=== PATIENT | male | born 1955 | race Caucasian/White ===

== ENCOUNTER 2020-08-04 16:55 | Inpatient (IN) ==
[2020-08-04] MEDS ORDERED: SODIUM CHLORIDE 0.9% 1000ML 1,000 ML IV ONE (17:08)
[2020-08-04] MEDS ORDERED: ONDANSETRON INJ 2 MG/ML 2 ML VIAL IV STA (17:09)
[2020-08-04] MEDS ORDERED: MoRPHine SULFATE 2 MG/ML CARP IV STA (17:09)
[2020-08-04] MEDS ORDERED: OPTIRAY 320 125ml IV ONE (17:14)
--- NOTE | 2020-08-04 17:19 | Emergency Department Note ---
History of Present Illness General Chief complaint: Illness Stated complaint: ILLNESS Time Seen by Provider: 08/04/20 17:00 Source: patient and family (Daughter who is at the bedside) Mode of arrival: ambulatory Limitations: no limitations History of Present Illness Maximum Pain Intensity: 10 This patient comes in after having abdominal pain this been going on for couple weeks. It got acutely worse today around 3:00. It does radiate to his back. Now he feels short of breath as well. He has been taking aspirin for pain over the last couple weeks. His daughter gives most of the history and says that he does not go to the doctor very often and has not been to a doctor in years. He is on no regular medication or blood thinners. No dysuria hematuria. No fever chills or exposure to COVID. No cough. Home Medications Home Medications Medication Instructions Recorded Confirmed Type aspirin 975 mg PO DAILY 08/04/20 08/04/20 History meloxicam 15 mg PO DAILY 08/04/20 08/04/20 History Allergies Allergy/AdvReac Type Severity Reaction Status Date / Time No Known Allergies Allergy Unverified 08/04/20 18:59 Past Med/Surg History Medical History (Updated 08/04/20 @ 20:03 by Danial Jensen MD) Abdominal pain Acute duodenitis Duodenal ulcer perforation Obesity Snoring SOB (shortness of breath) Surgical History (Updated 08/04/20 @ 19:59 by Leon Marin MD) Hx of tonsillectomy Social History Smoking Status: Unknown if ever smoked Do You Dip or Chew Tobacco: No; Hx Alcohol Use: No Hx Substance Use: No Feels Safe at Home: Yes Review of Systems A total of 10 systems reviewed and were otherwise negative Physical Exam Vital Signs Vital Signs - 24 hr 08/04/20 16:56 08/04/20 17:03 08/04/20 17:09 Temperature 37.2 C Temperature Source Oral Pulse Rate 103 H 84 83 Pulse Rate from SpO2 Sensor 85 84 Respiratory Rate 20 25 H 25 H Respiratory Effort / Characteristics Non-Labored Spontaneous Respiratory Depth Normal Blood Pressure 149/84 H 95/81 L Blood Pressure Mean 105 89 Blood Pressure Position Sitting Pulse Oximetry 99 94 95 Oxygen Delivery Method Room Air Room Air Room Air Oxygen Flow Rate Sepsis Recent Fever Within 48 Hours No Sepsis New/Unexplained Change in Mental Status No Sepsis Action Taken by Nursing No Action Required 08/04/20 17:27 08/04/20 17:30 08/04/20 17:37 Temperature Temperature Source Pulse Rate 88 99 H 86 Pulse Rate from SpO2 Sensor 86 Respiratory Rate 22 25 H 17 Respiratory Effort / Characteristics Respiratory Depth Blood Pressure 163/112 H 135/91 Blood Pressure Mean 135 96 Blood Pressure Position Pulse Oximetry 94 94 94 Oxygen Delivery Method Nasal Cannula Nasal Cannula Room Air Oxygen Flow Rate 4 4 Sepsis Recent Fever Within 48 Hours Sepsis New/Unexplained Change in Mental Status Sepsis Action Taken by Nursing 08/04/20 17:46 08/04/20 18:00 08/04/20 18:15 Temperature Temperature Source Pulse Rate 90 99 H 99 H Pulse Rate from SpO2 Sensor 91 H 97 H 95 H Respiratory Rate 20 20 19 Respiratory Effort / Characteristics Respiratory Depth Blood Pressure 156/87 H 144/96 H 144/97 H Blood Pressure Mean 96 112 110 Blood Pressure Position Pulse Oximetry 93 93 93 Oxygen Delivery Method Room Air Room Air Room Air Oxygen Flow Rate Sepsis Recent Fever Within 48 Hours Sepsis New/Unexplained Change in Mental Status Sepsis Action Taken by Nursing 08/04/20 18:30 08/04/20 19:15 Temperature Temperature Source Pulse Rate 110 H 117 H Pulse Rate from SpO2 Sensor 111 H 117 H Respiratory Rate 24 22 Respiratory Effort / Characteristics Respiratory Depth Blood Pressure 154/112 H 131/98 Blood Pressure Mean 128 102 Blood Pressure Position Pulse Oximetry 92 91 Oxygen Delivery Method Room Air Oxygen Flow Rate 5 Sepsis Recent Fever Within 48 Hours Sepsis New/Unexplained Change in Mental Status Sepsis Action Taken by Nursing General: Well developed well nourished somewhat pale mildly diaphoretic older male who appears uncomfortable but in no acute respiratory distress, breathing comfortably on room air. Normal speech HEENT: Normal cephalic atraumatic. Pupils are equal round and reactive to light. Extraocular movements are intact. Oropharynx is pink with moist mucous membranes. No swelling of the mouth lips or tongue. Neck: Supple with a midline trachea. No meningeal signs or stiffness, no JVD or bruits. No Stridor. Chest: Clear to auscultation bilaterally. No wheezes or rhonchi. No increased work of breathing. Heart: Regular rate and rhythm without murmurs or gallops. Abdomen: Soft distended and moderately diffusely tender. Extremities: No cyanosis clubbing or edema. No calf tenderness or assymetry Spine/Back. Non tender to palpation. No CVA tenderness Skin: Good turgor without rashes. Neurologic exam: Cranial nerves two through 12 are intact. Motor and sensation are intact and symmetrical throughout. Course Administered Medications Discontinued Medications Hydromorphone HCl (Hydromorphone Inj 1 Mg/Ml Syringe) 1 mg IV NOW STA Stop: 08/04/20 17:33 Last Admin: 08/04/20 17:36 Dose: 1 mg Documented by: [id number] Hydromorphone HCl (Hydromorphone Inj 0.5 Mg/0.5 Ml Syr) 0.5 mg IV NOW STA Stop: 08/04/20 18:48 Last Admin: 08/04/20 19:00 Dose: 0.5 mg Documented by: [id number] Sodium Chloride (Nss 1000ml) 1,000 mls @ 999 mls/hr IV .Q1H1M ONE Stop: 08/04/20 18:08 Last Infusion: 08/04/20 18:34 Dose: 0 mls/hr Documented by: [id number] Admin: 08/04/20 17:33 Dose: 999 mls/hr Documented by: [id number] Ioversol (Optiray 320 125ml) 118 ml IV ONCE ONE Stop: 08/04/20 17:15 Last Admin: 08/04/20 17:15 Dose: 118 ml Documented by: [id number] Morphine Sulfate (Morphine Sulfate 2 Mg/Ml Carp) 2 mg IV NOW STA Stop: 08/04/20 17:10 Last Admin: 08/04/20 17:33 Dose: 2 mg Documented by: [id number] Ondansetron HCl (Ondansetron Inj 2 Mg/Ml 2 Ml Vial) 4 mg IV NOW STA Stop: 08/04/20 17:10 Last Admin: 08/04/20 17:33 Dose: 4 mg Documented by: [id number] Critical Care Time Critical Care Time: Yes Total Critical Care Time: 60 Due to the patient's critical illness, need for frequent reassessment multiple medications and reevaluation and consultations and time sensitive treatments, I have personally spent greater than 60 minutes of critical care time in the direct management of this patient. This includes bedside care, interpretation of diagnostic studies, and testing, discussion with consultants, patient, and family members, and other required patient management activities. This 60 mi nutes is in excess of all separately billable procedures. Medical Decision Making Differential Diagnosis Acute coronary syndrome/ND, peptic ulcer disease, acute surgical process, aortic aneurysm, internal bleeding, aortic dissection, electrolyte or metabolic abnormality Medical Records Attestation: I reviewed the patient's medical records. Home Medications Current Medication List: was personally reviewed by me Laboratory Data Attestation: I reviewed the patient's lab results. Result diagrams: 08/04/20 17:10 08/04/20 17:10 Lab Results 08/04/20 08/04/20 08/04/20 Range/Units 17:09 17:10 17:10 WBC 9.27 (4.8-10.8) K/uL RBC 4.70 (4.7-6.1) M/uL Hgb 14.9 (14.0-18.0) g/dL POC Hgb 16.0 (14.0-18.0) g/dl Hct 43.5 (42-52) % POC Hct 47 (42-52) % MCV 92.6 (80-100) fL MCH 31.7 (25-34) pg MCHC 34.3 (32-36) g/dL RDW Std Deviation 48.9 H (36.4-46.3) fL RDW Coeff of Yan 14.1 (11.5-14.5) % Plt Count 264 (130-400) K/uL MPV 9.8 (7.4-10.4) fL Immature Gran % (Auto) 0.6 % Neut % (Auto) 59.6 % Lymph % (Auto) 33.0 % Braxton % (Auto) 4.4 % Eos % (Auto) 2.2 % Baso % (Auto) 0.2 % Neut # (Auto) 5.52 (1.4-6.5) K/uL Lymph # (Auto) 3.06 (1.2-3.4) K/uL Braxton # (Auto) 0.41 (0.11-0.59) K/uL Eos # (Auto) 0.20 (0-0.5) K/uL Baso # (Auto) 0.02 (0-0.2) K/uL Immature Gran # (Auto) 0.06 H (0.00-0.02) K/uL PT (9.0-12.0) Seconds INR (0.9-1.1) APTT (21.0-31.0) Seconds PTT Ratio POC Sodium 139 (135-144) mmol/L Sodium (136-145) mmol/L POC Potassium 3.8 (3.3-5.0) mmol/L Potassium (3.5-5.1) mmol/L POC Chloride 104 (101-112) mmol/L Chloride (98-107) mmol/L Carbon Dioxide (21-32) mmol/L POC Total CO2 25 (24-31) mmol/L Anion Gap (3-11) POC Anion Gap 16.0 (16-25) mmol/L POC BUN 24 H (7-18) mg/dl BUN (7-18) mg/dl Creatinine (0.6-1.4) mg/dl POC Creatinine 0.9 (0.6-1.3) mg/dl Est Cr Clr Drug Dosing Est GFR ( Amer) Est GFR (Non-Af Amer) BUN/Creatinine Ratio (10-20) Glucose (70-99) mg/dl POC Glucose (70-99) mg/dl POC Glucose (other) 116 H (70-99) mg/dl Lactate (0.4-2.0) mmol/L Calcium (8.5-10.1) mg/dl POC Ioniz Calcium Derrek 1.19 (1.12-1.32) mmol/l Total Bilirubin (0.2-1) mg/dl AST (15-37) U/L ALT (12-78) U/L Alkaline Phosphatase (45-117) U/L Troponin I (0-0.045) ng/ml Total Protein (6.4-8.2) gm/dl Albumin (3.4-5.0) gm/dl Globulin (2.5-4.0) gm/dl Albumin/Globulin Ratio (0.9-2) Lipase (73-393) U/L COVID-19 Eval Order SARS-CoV-2, RNA, NAAT (NEGATIVE) Blood Type A Negative Antibody Screen NEGATIVE 08/04/20 08/04/20 08/04/20 Range/Units 17:10 17:10 17:31 WBC (4.8-10.8) K/uL RBC (4.7-6.1) M/uL Hgb (14.0-18.0) g/dL POC Hgb (14.0-18.0) g/dl Hct (42-52) % POC Hct (42-52) % MCV (80-100) fL MCH (25-34) pg MCHC (32-36) g/dL RDW Std Deviation (36.4-46.3) fL RDW Coeff of Yan (11.5-14.5) % Plt Count (130-400) K/uL MPV (7.4-10.4) fL Immature Gran % (Auto) % Neut % (Auto) % Lymph % (Auto) % Braxton % (Auto) % Eos % (Auto) % Baso % (Auto) % Neut # (Auto) (1.4-6.5) K/uL Lymph # (Auto) (1.2-3.4) K/uL Braxton # (Auto) (0.11-0.59) K/uL Eos # (Auto) (0-0.5) K/uL Baso # (Auto) (0-0.2) K/uL Immature Gran # (Auto) (0.00-0.02) K/uL PT 10.3 (9.0-12.0) Seconds INR 1.0 (0.9-1.1) APTT 22.1 (21.0-31.0) Seconds PTT Ratio 0.8 POC Sodium (135-144) mmol/L Sodium 137 (136-145) mmol/L POC Potassium (3.3-5.0) mmol/L Potassium 3.7 (3.5-5.1) mmol/L POC Chloride (101-112) mmol/L Chloride 106 (98-107) mmol/L Carbon Dioxide 23 (21-32) mmol/L POC Total CO2 (24-31) mmol/L Anion Gap 8.0 (3-11) POC Anion Gap (16-25) mmol/L POC BUN (7-18) mg/dl BUN 22 H (7-18) mg/dl Creatinine 1.01 (0.6-1.4) mg/dl POC Creatinine (0.6-1.3) mg/dl Est Cr Clr Drug Dosing Not Reportable Est GFR ( Amer) 92.0 Est GFR (Non-Af Amer) 79.3 BUN/Creatinine Ratio 21.3 H (10-20) Glucose 113 H (70-99) mg/dl POC Glucose (70-99) mg/dl POC Glucose (other) (70-99) mg/dl Lactate 2.2 H* (0.4-2.0) mmol/L Calcium 9.5 (8.5-10.1) mg/dl POC Ioniz Calcium Derrek (1.12-1.32) mmol/l Total Bilirubin 0.6 (0.2-1) mg/dl AST 29 (15-37) U/L ALT 41 (12-78) U/L Alkaline Phosphatase 86 (45-117) U/L Troponin I < 0.015 (0-0.045) ng/ml Total Protein 7.9 (6.4-8.2) gm/dl Albumin 3.8 (3.4-5.0) gm/dl Globulin 4.1 H (2.5-4.0) gm/dl Albumin/Globulin Ratio 0.9 (0.9-2) Lipase 86 (73-393) U/L COVID-19 Eval Order SARS-CoV-2, RNA, NAAT (NEGATIVE) Blood Type Antibody Screen 08/04/20 08/04/20 08/04/20 Range/Units 18:54 18:54 19:17 WBC (4.8-10.8) K/uL RBC (4.7-6.1) M/uL Hgb (14.0-18.0) g/dL POC Hgb (14.0-18.0) g/dl Hct (42-52) % POC Hct (42-52) % MCV (80-100) fL MCH (25-34) pg MCHC (32-36) g/dL RDW Std Deviation (36.4-46.3) fL RDW Coeff of Yan (11.5-14.5) % Plt Count (130-400) K/uL MPV (7.4-10.4) fL Immature Gran % (Auto) % Neut % (Auto) % Lymph % (Auto) % Braxton % (Auto) % Eos % (Auto) % Baso % (Auto) % Neut # (Auto) (1.4-6.5) K/uL Lymph # (Auto) (1.2-3.4) K/uL Braxton # (Auto) (0.11-0.59) K/uL Eos # (Auto) (0-0.5) K/uL Baso # (Auto) (0-0.2) K/uL Immature Gran # (Auto) (0.00-0.02) K/uL PT (9.0-12.0) Seconds INR (0.9-1.1) APTT (21.0-31.0) Seconds PTT Ratio POC Sodium (135-144) mmol/L Sodium (136-145) mmol/L POC Potassium (3.3-5.0) mmol/L Potassium (3.5-5.1) mmol/L POC Chloride (101-112) mmol/L Chloride (98-107) mmol/L Carbon Dioxide (21-32) mmol/L POC Total CO2 (24-31) mmol/L Anion Gap (3-11) POC Anion Gap (16-25) mmol/L POC BUN (7-18) mg/dl BUN (7-18) mg/dl Creatinine (0.6-1.4) mg/dl POC Creatinine (0.6-1.3) mg/dl Est Cr Clr Drug Dosing Est GFR ( Amer) Est GFR (Non-Af Amer) BUN/Creatinine Ratio (10-20) Glucose (70-99) mg/dl POC Glucose 158 H (70-99) mg/dl POC Glucose (other) (70-99) mg/dl Lactate (0.4-2.0) mmol/L Calcium (8.5-10.1) mg/dl POC Ioniz Calcium Derrek (1.12-1.32) mmol/l Total Bilirubin (0.2-1) mg/dl AST (15-37) U/L ALT (12-78) U/L Alkaline Phosphatase (45-117) U/L Troponin I (0-0.045) ng/ml Total Protein (6.4-8.2) gm/dl Albumin (3.4-5.0) gm/dl Globulin (2.5-4.0) gm/dl Albumin/Globulin Ratio (0.9-2) Lipase (73-393) U/L COVID-19 Eval Order Covid19 [id number] SARS-CoV-2, RNA, NAAT NEGATIVE (NEGATIVE) Blood Type Antibody Screen Imaging Data Radiologist's Impression: CT ANGIOGRAPHY THE CHEST WITHOUT AND WITH CONTRAST CLINICAL HISTORY: Chest pain suspicious for aortic dissection COMPARISON STUDY: No previous studies for comparison. TECHNIQUE: Unenhanced images were obtained through the thorax. Following the IV administration of 118 mL of Optiray-320, CT of the thorax was performed from the thoracic inlet to the lung bases. Images are reviewed in the axial, sagittal, and coronal planes. CT angiographic images were acquired. MIP images were obtained. IV contrast was administered without complication. A dose lowering technique was utilized adhering to the principles of ALARA. CT DOSE: 3258.76 mGy.cm FINDINGS: Thyroid: Imaged portions of the thyroid gland are normal in appearance. Thoracic aorta: There is no evidence of acute aortic hematoma. There is no evidence of thoracic aortic aneurysm or dissection. Pulmonary vasculature: The pulmonary trunk is normal in caliber. There are no central filling defects identified to suggest pulmonary embolus. Note that this examination was not protocoled for the evaluation of pulmonary emboli. HEART: The heart is normal in size. There are mild coronary artery calcifications. There is no pericardial effusion. Lungs and pleural spaces: There are no pleural effusions. There are dependent atelectatic changes. There is pulmonary emphysema. Mediastinum: There is no mediastinal lymphadenopathy. Flaquita: Clear. Axilla: Clear. Upper abdomen: There is severe hepatic steatosis. There is a small amount of perihepatic fluid. Skeletal structures: There are no lytic or blastic osseous lesions. IMPRESSION: 1. No acute intrathoracic findings 2. No evidence of thoracic aortic aneurysm or dissection 3. Basilar atelectatic change 4. Severe hepatic steatosis. Small amount of perihepatic fluid. ECG Data Attestation: I personally reviewed and interpreted this ECG as follows: Indication: + abdominal pain Rate (beats per minute): 90 Rhythm: + normal sinus ECG Intervals/blocks: + Normal QRS, + Short DE and + Normal QT ECG [place]: + Normal ECG ST segments: + Normal ST segments ECG Findings: no PACs Comparison ECG Date: no prior available Blood Pressure Blood Pressure Findings: Low blood pressure MDM Narrative This patient comes in as described above. I was very concerned when I went in the room as he does appear ill, he is pale and sweaty with abdominal and back pain.. His blood pressures also dropped in the high 90s. His abdomen is tender and may be distended. He has has not been seen by a doctor in many years as well according to his daughter. IV access was quickly established and I ordered type and screen as well EKG and multiple blood testing his EKG does not show anything to suggest acute coronary syndrome or acute STEMI. We did i-STAT labs and sent him emergently over to the CAT scan to get a CT of the chest abdomen and pelvis to rule out dissection free air intra-abdominal processes as well. His initial i-STAT labs show normal hemoglobin and kidney function. He was given a 1 L IV normal saline bolus. Second IV was also established in the ED. I promptly got him to CAT scan. There is no evidence of free air, aortic dissection, or intra-abdominal hemorrhage. He came back and was having significant pain and was diaphoretic. He also says he feels short of breath with the pain but his O2 sat looks okay. He was given Dilaudid 1 mg IV as his blood pressure did come up to 163/110s and he was extremely uncomfortable. He seemed much more comfortable after getting the Dilaudid and became less diaphoretic and pale his vital signs remained stable. His CAT scan shows duodenitis with concern for area of rupture. In light of this, I did consult Dr. Dey to emergently see the patient in the emergency department. He has no white count or fever elevation. He has a 11. He has no acute electrolyte or metabolic abnormalities. He has nothing to suggest liver, gallbladder, or pancreas disease. Troponin is negative Dr. Dey did see the patient and is going to take the patient to the operating room. The patient's lactic acid was mildly elevated 2.2 however he has been hydrated is going to the OR. His rapid COVID also came back negative. Continuous cardiac monitoring: Due to the patient's abdominal pain, an order was placed in the EMR for continuous cardiac monitoring. The patient was noted to be tachycardia with a rate of 100. Impression & Plan Duodenal ulcer perforation, Abdominal pain, Acute duodenitis, SOB (shortness of breath), COVID-19 ruled out by laboratory testing Discharge Plan Visit Data Chief Complaint: Illness Stated Complaint: ILLNESS ED Provider: Danial Jensen Discharge Problem: Duodenal ulcer perforation, Abdominal pain, Acute duodenitis, SOB (shortness of breath), COVID-19 ruled out by laboratory testing Patient Disposition: Still a Patient Discharge Instructions Interventions: ED Discharge Assessment Last Done: 08/04/20 19:30 Discharge Problem: Abdominal pain Qualifiers: Abdominal location: upper abdomen, unspecified Qualified Code(s): R10.10 - Upper abdominal pain, unspecified
[2020-08-04 17:21] LABS: Basophils # (auto) 0.02 K/uL (0-0.2); Basophils % (auto) 0.2 %; Eosinophils % (auto) 2.2 %; Hematocrit (blood only) 43.5 % (42-52); Hemoglobin 14.9 g/dL (14.0-18.0); Immature Granulocytes # (auto) 0.06 K/uL (0.00-0.02); Immature Granulocytes % (auto) 0.6 %; Lymphocytes # (auto) 3.06 K/uL (1.2-3.4); Mean Corpuscular Hemoglobin 31.7 pg (25-34); Mean Corpuscular Hgb Conc 34.3 g/dL (32-36); Mean Corpuscular Volume 92.6 fL (80-100); Mean Platelet Volume 9.8 fL (7.4-10.4); Monocytes # (auto) 0.41 K/uL (0.11-0.59); Monocytes % (auto) 4.4 %; Neutrophils # (auto) 5.52 K/uL (1.4-6.5); Neutrophils % (auto) 59.6 %; Platelet Count 264 K/uL (130-400); RDW Coefficient of Variation 14.1 % (11.5-14.5); RDW Standard Deviation 48.9 fL (36.4-46.3); White Blood Count 9.27 K/uL (4.8-10.8)
[2020-08-04 17:22] LABS: iSTAT Creatinine 0.9 mg/dl (0.6-1.3); iSTAT Ionized Calcium 1.19 mmol/l (1.12-1.32); iSTAT Potassium 3.8 mmol/L (3.3-5.0)
[2020-08-04] MEDS ORDERED: HYDROmorphone INJ 1 MG/ML SYRINGE IV STA (17:32)
--- NOTE | 2020-08-04 17:34 | CT Scan Report ---
CT ANGIOGRAPHY THE CHEST WITHOUT AND WITH CONTRAST CLINICAL HISTORY: Chest pain suspicious for aortic dissection COMPARISON STUDY: No previous studies for comparison. TECHNIQUE: Unenhanced images were obtained through the thorax. Following the IV administration of 118 mL of Optiray-320, CT of the thorax was performed from the thoracic inlet to the lung bases. Images are reviewed in the axial, sagittal, and coronal planes. CT angiographic images were acquired. MIP im ages were obtained. IV contrast was administered without complication. A dose lowering technique was utilized adhering to the principles of ALARA. CT DOSE: 3258.76 mGy.cm FINDINGS: Thyroid: Imaged portions of the thyroid gland are normal in appearance. Thoracic aorta: There is no evidence of acute aortic hematoma. There is no evidence of thoracic aorti c aneurysm or dissection. Pulmonary vasculature: The pulmonary trunk is normal in caliber. There are no central filling defects identified to suggest pulmonary embolus. Note that this examination was not protocoled for the evalu ation of pulmonary emboli. HEART: The heart is normal in size. There are mild coronary artery calcifications. There is no perica rdial effusion. Lungs and pleural spaces: There are no pleural effusions. There are dependent atelectatic changes. Th ere is pulmonary emphysema. Mediastinum: There is no mediastinal lymphadenopathy. Flaquita: Clear. Axilla: Clear. Upper abdomen: There is severe hepatic steatosis. There is a small amount of perihepatic fluid. Skeletal structures: There are no lytic or blastic osseous lesions. IMPRESSION: 1. No acute intrathoracic findings 2. No evidence of thoracic aortic aneurysm or dissection 3. Basilar atelectatic change 4. Severe hepatic steatosis. Small amount of perihepatic fluid. ACT 112: Negative or not required by law. Electronically signed by: Oleg Saleem M.D. 08/04/2020 5:33 PM
[2020-08-04 17:39] LABS: Partial Thromboplastin Ratio 0.8; Partial Thromboplastin Time 22.1 Seconds (21.0-31.0); Prothrombin Time 10.3 Seconds (9.0-12.0)
--- NOTE | 2020-08-04 17:46 | CT Scan Report ---
CT abd pelvis IV con only CLINICAL HISTORY: Chest and abdominal pain. COMPARISON STUDY: None. TECHNIQUE: The patient was scanned in a dynamic helical fashion during intravenous administration of 118 cc of Optiray 320 A dose lowering technique was utilized adhering to the principles of ALARA. CT DOSE: FINDINGS: Lower chest: There are dependent atelectatic changes Liver: There is severe hepatic steatosis. There is trace perihepatic fluid. Gallbladder: Unremarkable. Spleen: Normal in size and attenuation. Pancreas: Unremarkable. Adrenal glands: Unremarkable. Kidneys: There is a 7 mm nonobstructing right renal calculus. There is no hydronephrosis. Bowel: There are no transition zones indicate bowel obstruction. There is no evidence of acute divert iculitis. The appendix appears normal. There is bowel wall thickening involving the duodenal bulb and descending duodenum. There is infiltration of the surrounding fat. There are few tiny droplets of ai r adjacent to the gallbladder which could indicate a perforation. There is also air present within th e duodenal wall. Peritoneum: There is trace perihepatic fluid. There is trace fluid within the pelvis. Vasculature: The abdominal aorta is normal in course and caliber. Adenopathy: None. Pelvic viscera: Prostate is enlarged. There is mild bladder wall thickening Skeletal structures: No destructive osseous lesions are seen. IMPRESSION: 1. Abnormal bowel wall thickening involving the duodenal bulb and descending duodenum with infiltrati on of the surrounding fat. There are gas bubbles within the duodenal wall, and there are are a few ti ny gas bubbles adjacent to the gallbladder. The findings likely represent a perforated duodenitis/ulc er. 2. Severe hepatic steatosis and trace perihepatic fluid 3. No evidence of bowel obstruction 4. Nonobstructing right renal calculus ACT 112: Negative or not required by law. Electronically signed by: Oleg Saleem M.D. 08/04/2020 5:45 PM
[2020-08-04 17:55] LABS: Alanine Aminotransferase 41 U/L (12-78); Albumin Level 3.8 gm/dl (3.4-5.0); Aspartate Aminotransferase 29 U/L (15-37); BUN Creatinine Ratio 21.3 (10-20); Blood Urea Nitrogen 22 mg/dl (7-18); Calcium 9.5 mg/dl (8.5-10.1); Carbon Dioxide 23 mmol/L (21-32); Chloride 106 mmol/L (98-107); Est GFR (Non-African American) 79.3; Glucose 113 mg/dl (70-99); Lipase 86 U/L (73-393); Potassium 3.7 mmol/L (3.5-5.1); Sodium 137 mmol/L (136-145)
[2020-08-04 18:00] LABS: Albumin Globulin Ratio 0.9 (0.9-2); Alkaline Phosphatase 86 U/L (45-117); Bilirubin,Total 0.6 mg/dl (0.2-1); Globulin 4.1 gm/dl (2.5-4.0); Total Protein 7.9 gm/dl (6.4-8.2); Troponin I < 0.015 ng/ml (0-0.045)
[2020-08-04] MEDS ORDERED: HYDROmorphone INJ 0.5 MG/0.5 ML SYR IV STA (18:47)
[2020-08-04] MEDS ORDERED: fentaNYL citrate 100 MCG/2 ML VIAL ONE ×2 (18:58→21:38)
--- NOTE | 2020-08-04 19:00 | Anesthesiology Consultation ---
Date of Service August 04, 2020 Assessment & Plan (1) Encounter for pre-operative examination: Chart Review Chart Review: Acceptable Risk for Surgery and Patient NOT seen in Pre Admission Testing covid negative 08/04/2020. Consults Requested none History Surgery Operation Date: 08/04/20 19:00 Proposed Procedures p Exploratory Laparotomy - Terry Dey MD Height/Weight Weight: 117.934 kg Allergies Allergy/AdvReac Type Severity Reaction Status Date / Time No Known Allergies Allergy Unverified 08/04/20 18:59 Medications Home Medications Medication Instructions Recorded Confirmed Last Taken aspirin 975 mg PO DAILY 08/04/20 08/04/20 Unknown meloxicam 15 mg PO DAILY 08/04/20 08/04/20 Unknown Past Medical History Medical History (Updated 08/04/20 @ 19:59 by Leon Marin MD) Abdominal pain Acute duodenitis Duodenal ulcer perforation Obesity Snoring SOB (shortness of breath) Exercise / Class Metabolic Activity II 4-5 Yardwork/Stairs/Walk up hill Past Surgical History Surgical History (Updated 08/04/20 @ 19:59 by Leon Marin MD) Hx of tonsillectomy Past Anesthesia History No Hx of Anesthesia Complications and No Family Hx of Anesthesia Complications History of PONV No Hx of PONV and No Hx of Motion Sickness Social History Smoking Status: Unknown if ever smoked Do You Dip or Chew Tobacco: No Hx Alcohol Use: No Hx Substance Use: No Physical Exam Vital Signs Last Vital Signs Temp 37.2 C 08/04/20 16:56 Pulse 117 H 08/04/20 19:15 Resp 22 08/04/20 19:15 BP 131/98 08/04/20 19:15 Pulse Ox 91 08/04/20 19:15 Testing Laboratory Results 08/04/20 17:10 08/04/20 17:10 PT 10.3 Seconds (9.0-12.0) 08/04/20 17:10 INR 1.0 (0.9-1.1) 08/04/20 17:10 APTT 22.1 Seconds (21.0-31.0) 08/04/20 17:10 Blood Type A Negative 08/04/20 17:10 Antibody Screen NEGATIVE 08/04/20 17:10 08/04/20 08/04/20 19:17 17:09 POC Glucose 158 H POC Glucose (other) 116 H Lactate 2.2. Other Testing CT scan chest 08/04/2020: IMPRESSION: 1. No acute intrathoracic findings 2. No evidence of thoracic aortic aneurysm or dissection 3. Basilar atelectatic change 4. Severe hepatic steatosis. Small amount of perihepatic fluid. ECG Data 08/04/2020 Indication: + abdominal pain Rate (beats per minute): 90 Rhythm: + normal sinus ECG Intervals/blocks: + Normal QRS, + Short [place] and + Normal QT ECG Gravity: + Normal ECG ST segments: + Normal ST segments ECG Findings: no PACs Comparison ECG Date: no prior available CT scan abdomen: IMPRESSION: 1. Abnormal bowel wall thickening involving the duodenal bulb and descending duodenum with infiltration of the surrounding fat. There are gas bubbles within the duodenal wall, and there are are a few tiny gas bubbles adjacent to the gallbladder. The findings likely represent a perforated duodenitis/ulcer. 2. Severe hepatic steatosis and trace perihepatic fluid 3. No evidence of bowel obstruction 4. Nonobstructing right renal calculus
[2020-08-04] MEDS ORDERED: ATROPINE SULFATE 0.1 MG/ML 10ML SYR IV PRN (19:01)
[2020-08-04] MEDS ORDERED: HYDROmorphone INJ 1 MG/ML SYRINGE IV PRN (19:01)
[2020-08-04] MEDS ORDERED: fentaNYL citrate 100 MCG/2 ML VIAL IV PRN (19:01)
[2020-08-04] MEDS ORDERED: ONDANSETRON INJ 2 MG/ML 2 ML VIAL IV PRN ×2 (19:01→22:56)
[2020-08-04] MEDS ORDERED: ePHEDrine sulfate 50 MG/ML AMP IV PRN (19:01)
[2020-08-04] MEDS ORDERED: ALBUMIN HUMAN 5% 12.5 GM/250 ML VIAL IV ONE (19:07)
--- NOTE | 2020-08-04 19:14 | History & Physical Report ---
Date of Service August 04, 2020 Assessment & Plan (1) Duodenal ulcer perforation: This patient has acute on top of chronic abdominal pain. All of it was in the upper abdomen. He has been on Mobic daily as well as aspirin daily. The acute pain came on suddenly. CT scan shows thickening of the duodenal wall with some mild amount of free air around the gallbladder and there is also fluid around the liver. His white count is normal however. His history of NSAID use and chronic abdominal pain with a sharp increase suddenly would be consistent with a perforation of a duodenal ulcer. I explained that to him. His daughter was also present. I recommended exploratory laparotomy with oversewing of the ulcer and Gagandeep patch. I have explained him the procedure and the possible complications and he has signed a consent form. History of Present Illness Chief Complaint: Abdominal pain Primary Care Provider: KIARA PCP This is a 64-year-old male who presented to the emergency room with a complaint of abdominal pain. The patient has been having upper abdominal pain for at least the last month. He has been taking Mobic daily for bilateral knee pain. He developed upper abdominal discomfort so began to take aspirin as well. He was taking 1 dose of Mobic and 1 dose of aspirin per day for at least the last 14 days. At approximately 3:00 this afternoon he had the acute onset of increased severity and more sharp discomfort. The pain is in the epigastric area. It was radiating around to his back at times. He had some mild nausea but no vomiting. His bowel habits have been normal. He has had no urinary habits. He denied fever. Upon arrival in the emergency room the emergency room physician describes him to have been pale and "pasty". He was given intravenous fluids and analgesics. A work-up for a cardiac etiology was negative. He then underwent a CT scan of the abdomen and pelvis that showed thickening of the du odenum. There was some dots of air in the wall of the duodenum and there was some free air around the gallbladder. There was also fluid around the liver. Allergies Allergy/AdvReac Type Severity Reaction Status Date / Time No Known Allergies Allergy Unverified 08/04/20 18:59 Home Medications Home Medications Medication Instructions Recorded Confirmed Type aspirin 975 mg PO DAILY 08/04/20 08/04/20 History meloxicam 15 mg PO DAILY 08/04/20 08/04/20 History Past Med/Surg History Social History Smoking Status: Unknown if ever smoked Feels Safe at Home: Yes Review of Systems Review of Systems: All systems reviewed & are unremarkable except as noted in HPI & below Physical Exam Constitutional: + ill appearing and average body habitus Neck: trachea midline Respiratory: normal respiratory effort, lungs clear to auscultation Cardiovascular: Rate/Rhythm: regular rate and regular rhythm Gastrointestinal (Abdomen): Inspection/Auscultation: abdomen not distended Percussion/Palpation: + abdomen tender (Significant tenderness in the upper abdomen especially in the epigastric area); + abdomen not soft Decreased bowel sounds Skin: no rashes, warm and dry Lymphatic: no cervical lymphadenopathy Results & Data Results & Data ([facility]) Vital Signs (Past 12 Hours) Vital Signs Temp Pulse Resp BP Pulse Ox 08/04/20 18:30 110 H 24 154/112 H 92 08/04/20 18:15 99 H 19 144/97 H 93 08/04/20 18:00 99 H 20 144/96 H 93 08/04/20 17:46 90 20 156/87 H 93 08/04/20 17:37 86 17 135/91 94 08/04/20 17:30 99 H 25 H 94 08/04/20 17:27 88 22 163/112 H 94 08/04/20 17:09 83 25 H 95 08/04/20 17:03 84 25 H 95/81 L 94 08/04/20 16:56 37.2 C 103 H 20 149/84 H 99 Laboratory Results 08/04/20 08/04/20 08/04/20 Range/Units 18:54 18:54 17:31 WBC (4.8-10.8) K/uL RBC (4.7-6.1) M/uL Hgb (14.0-18.0) g/dL POC Hgb (14.0-18.0) g/dl Hct (42-52) % POC Hct (42-52) % MCV (80-100) fL MCH (25-34) pg MCHC (32-36) g/dL RDW Std Deviation (36.4-46.3) fL RDW Coeff of Yan (11.5-14.5) % Plt Count (130-400) K/uL MPV (7.4-10.4) fL Immature Gran % (Auto) % Neut % (Auto) % Lymph % (Auto) % [place] % (Auto) % Eos % (Auto) % Baso % (Auto) % Neut # (Auto) (1.4-6.5) K/uL Lymph # (Auto) (1.2-3.4) K/uL [place] # (Auto) (0.11-0.59) K/uL Eos # (Auto) (0-0.5) K/uL Baso # (Auto) (0-0.2) K/uL Immature Gran # (Auto) (0.00-0.02) K/uL PT (9.0-12.0) Seconds INR (0.9-1.1) APTT (21.0-31.0) Seconds PTT Ratio POC Sodium (135-144) mmol/L Sodium (136-145) mmol/L POC Potassium (3.3-5.0) mmol/L Potassium (3.5-5.1) mmol/L POC Chloride (101-112) mmol/L Chloride (98-107) mmol/L Carbon Dioxide (21-32) mmol/L POC Total CO2 (24-31) mmol/L Anion Gap (3-11) POC Anion Gap (16-25) mmol/L POC BUN (7-18) mg/dl BUN (7-18) mg/dl Creatinine (0.6-1.4) mg/dl POC Creatinine (0.6-1.3) mg/dl Est Cr Clr Drug Dosing Est GFR ( Amer) Est GFR (Non-Af Amer) BUN/Creatinine Ratio (10-20) Glucose (70-99) mg/dl POC Glucose (other) (70-99) mg/dl Lactate 2.2 H* (0.4-2.0) mmol/L Calcium (8.5-10.1) mg/dl POC Ioniz Calcium Derrek (1.12-1.32) mmol/l Total Bilirubin (0.2-1) mg/dl AST (15-37) U/L ALT (12-78) U/L Alkaline Phosphatase (45-117) U/L Troponin I (0-0.045) ng/ml Total Protein (6.4-8.2) gm/dl Albumin (3.4-5.0) gm/dl Globulin (2.5-4.0) gm/dl Albumin/Globulin Ratio (0.9-2) Lipase (73-393) U/L COVID-19 Eval Order Covid19 [facility] SARS-CoV-2, RNA, NAAT Pending Blood Type Antibody Screen 08/04/20 08/04/20 08/04/20 Range/Units 17:10 17:10 17:10 WBC 9.27 (4.8-10.8) K/uL RBC 4.70 (4.7-6.1) M/uL Hgb 14.9 (14.0-18.0) g/dL POC Hgb (14.0-18.0) g/dl Hct 43.5 (42-52) % POC Hct (42-52) % MCV 92.6 (80-100) fL MCH 31.7 (25-34) pg MCHC 34.3 (32-36) g/dL RDW Std Deviation 48.9 H (36.4-46.3) fL RDW Coeff of Yan 14.1 (11.5-14.5) % Plt Count 264 (130-400) K/uL MPV 9.8 (7.4-10.4) fL Immature Gran % (Auto) 0.6 % Neut % (Auto) 59.6 % Lymph % (Auto) 33.0 % [place] % (Auto) 4.4 % Eos % (Auto) 2.2 % Baso % (Auto) 0.2 % Neut # (Auto) 5.52 (1.4-6.5) K/uL Lymph # (Auto) 3.06 (1.2-3.4) K/uL [place] # (Auto) 0.41 (0.11-0.59) K/uL Eos # (Auto) 0.20 (0-0.5) K/uL Baso # (Auto) 0.02 (0-0.2) K/uL Immature Gran # (Auto) 0.06 H (0.00-0.02) K/uL PT 10.3 (9.0-12.0) Seconds INR 1.0 (0.9-1.1) APTT 22.1 (21.0-31.0) Seconds PTT Ratio 0.8 POC Sodium (135-144) mmol/L Sodium 137 (136-145) mmol/L POC Potassium (3.3-5.0) mmol/L Potassium 3.7 (3.5-5.1) mmol/L POC Chloride (101-112) mmol/L Chloride 106 (98-107) mmol/L Carbon Dioxide 23 (21-32) mmol/L POC Total CO2 (24-31) mmol/L Anion Gap 8.0 (3-11) POC Anion Gap (16-25) mmol/L POC BUN (7-18) mg/dl BUN 22 H (7-18) mg/dl Creatinine 1.01 (0.6-1.4) mg/dl POC Creatinine (0.6-1.3) mg/dl Est Cr Clr Drug Dosing Not Reportable Est GFR ( Amer) 92.0 Est GFR (Non-Af Amer) 79.3 BUN/Creatinine Ratio 21.3 H (10-20) Glucose 113 H (70-99) mg/dl POC Glucose (other) (70-99) mg/dl Lactate (0.4-2.0) mmol/L Calcium 9.5 (8.5-10.1) mg/dl POC Ioniz Calcium Derrek (1.12-1.32) mmol/l Total Bilirubin 0.6 (0.2-1) mg/dl AST 29 (15-37) U/L ALT 41 (12-78) U/L Alkaline Phosphatase 86 (45-117) U/L Troponin I < 0.015 (0-0.045) ng/ml Total Protein 7.9 (6.4-8.2) gm/dl Albumin 3.8 (3.4-5.0) gm/dl Globulin 4.1 H (2.5-4.0) gm/dl Albumin/Globulin Ratio 0.9 (0.9-2) Lipase 86 (73-393) U/L COVID-19 Eval Order SARS-CoV-2, RNA, NAAT Blood Type Antibody Screen 08/04/20 08/04/20 Range/Units 17:10 17:09 WBC (4.8-10.8) K/uL RBC (4.7-6.1) M/uL Hgb (14.0-18.0) g/dL POC Hgb 16.0 (14.0-18.0) g/dl Hct (42-52) % POC Hct 47 (42-52) % MCV (80-100) fL MCH (25-34) pg MCHC (32-36) g/dL RDW Std Deviation (36.4-46.3) fL RDW Coeff of Yan (11.5-14.5) % Plt Count (130-400) K/uL MPV (7.4-10.4) fL Immature Gran % (Auto) % Neut % (Auto) % Lymph % (Auto) % [place] % (Auto) % Eos % (Auto) % Baso % (Auto) % Neut # (Auto) (1.4-6.5) K/uL Lymph # (Auto) (1.2-3.4) K/uL [place] # (Auto) (0.11-0.59) K/uL Eos # (Auto) (0-0.5) K/uL Baso # (Auto) (0-0.2) K/uL Immature Gran # (Auto) (0.00-0.02) K/uL PT (9.0-12.0) Seconds INR (0.9-1.1) APTT (21.0-31.0) Seconds PTT Ratio POC Sodium 139 (135-144) mmol/L Sodium (136-145) mmol/L POC Potassium 3.8 (3.3-5.0) mmol/L Potassium (3.5-5.1) mmol/L POC Chloride 104 (101-112) mmol/L Chloride (98-107) mmol/L Carbon Dioxide (21-32) mmol/L POC Total CO2 25 (24-31) mmol/L Anion Gap (3-11) POC Anion Gap 16.0 (16-25) mmol/L POC BUN 24 H (7-18) mg/dl BUN (7-18) mg/dl Creatinine (0.6-1.4) mg/dl POC Creatinine 0.9 (0.6-1.3) mg/dl Est Cr Clr Drug Dosing Est GFR ( Amer) Est GFR (Non-Af Amer) BUN/Creatinine Ratio (10-20) Glucose (70-99) mg/dl POC Glucose (other) 116 H (70-99) mg/dl Lactate (0.4-2.0) mmol/L Calcium (8.5-10.1) mg/dl POC Ioniz Calcium Derrek 1.19 (1.12-1.32) mmol/l Total Bilirubin (0.2-1) mg/dl AST (15-37) U/L ALT (12-78) U/L Alkaline Phosphatase (45-117) U/L Troponin I (0-0.045) ng/ml Total Protein (6.4-8.2) gm/dl Albumin (3.4-5.0) gm/dl Globulin (2.5-4.0) gm/dl Albumin/Globulin Ratio (0.9-2) Lipase (73-393) U/L COVID-19 Eval Order SARS-CoV-2, RNA, NAAT Blood Type A Negative Antibody Screen NEGATIVE Diagnostic Findings CT abd pelvis IV con only CLINICAL HISTORY: Chest and abdominal pain. COMPARISON STUDY: None. TECHNIQUE: The patient was scanned in a dynamic helical fashion during intravenous administration of 118 cc of Optiray 320 A dose lowering technique was utilized adhering to the principles of ALARA. CT DOSE: FINDINGS: Lower chest: There are dependent atelectatic changes Liver: There is severe hepatic steatosis. There is trace perihepatic fluid. Gallbladder: Unremarkable. Spleen: Normal in size and attenuation. Pancreas: Unremarkable. Adrenal glands: Unremarkable. Kidneys: There is a 7 mm nonobstructing right renal calculus. There is no hydronephrosis. Bowel: There are no transition zones indicate bowel obstruction. There is no evidence of acute diverticulitis. The appendix appears normal. There is bowel wall thickening involving the duodenal bulb and descending duodenum. There is infiltration of the surrounding fat. There are few tiny droplets of air adjacent to the gallbladder which could indicate a perforation. There is also air present within the duodenal wall. Peritoneum: There is trace perihepatic fluid. There is trace fluid within the pelvis. Vasculature: The abdominal aorta is normal in course and caliber. Adenopathy: None. Pelvic viscera: Prostate is enlarged. There is mild bladder wall thickening Skeletal structures: No destructive osseous lesions are seen. IMPRESSION: 1. Abnormal bowel wall thickening involving the duodenal bulb and descending duodenum with infiltration of the surrounding fat. There are gas bubbles within the duodenal wall, and there are are a few tiny gas bubbles adjacent to the gallbladder. The findings likely represent a perforated duodenitis/ulcer. 2. Severe hepatic steatosis and trace perihepatic fluid 3. No evidence of bowel obstruction 4. Nonobstructing right renal calculus CT ANGIOGRAPHY THE CHEST WITHOUT AND WITH CONTRAST CLINICAL HISTORY: Chest pain suspicious for aortic dissection COMPARISON STUDY: No previous studies for comparison. TECHNIQUE: Unenhanced images were obtained through the thorax. Following the IV administration of 118 mL of Optiray-320, CT of the thorax was performed from the thoracic inlet to the lung bases. Images are reviewed in the axial, sagittal, and coronal planes. CT angiographic images were acquired. MIP images were obtained. IV contrast was administered without complication. A dose lowering technique was utilized adhering to the principles of ALARA. CT DOSE: 3258.76 mGy.cm FINDINGS: Thyroid: Imaged portions of the thyroid gland are normal in appearance. Thoracic aorta: There is no evidence of acute aortic hematoma. There is no evidence of thoracic aortic aneurysm or dissection. Pulmonary vasculature: The pulmonary trunk is normal in caliber. There are no central filling defects identified to suggest pulmonary embolus. Note that this examination was not protocoled for the evaluation of pulmonary emboli. HEART: The heart is normal in size. There are mild coronary artery calcifications. There is no pericardial effusion. Lungs and pleural spaces: There are no pleural effusions. There are dependent atelectatic changes. There is pulmonary emphysema. Mediastinum: There is no mediastinal lymphadenopathy. [place]: Clear. Axilla: Clear. Upper abdomen: There is severe hepatic steatosis. There is a small amount of perihepatic fluid. Skeletal structures: There are no lytic or blastic osseous lesions. IMPRESSION: 1. No acute intrathoracic findings 2. No evidence of thoracic aortic aneurysm or dissection 3. Basilar atelectatic change 4. Severe hepatic steatosis. Small amount of perihepatic fluid.
[2020-08-04] MEDS ORDERED: ROCURONIUM BROMIDE 10 MG/ML 5 ML VIAL IV ONE (20:34)
[2020-08-04] MEDS ORDERED: SUCCINYLCHOLINE CHLORIDE 20 MG/ML 10 ML VIAL IV ONE (20:34)
[2020-08-04] MEDS ORDERED: PROPOFOL IV EMULSION 10 MG/ML 20 ML VIAL IV ONE (20:34)
[2020-08-04] MEDS ORDERED: LIDOCAINE HCL 2% 2 ML VIAL/AMP(20MG/ML) INFIL ONE (20:34)
[2020-08-04] MEDS ORDERED: cefOXitin 2,000 MG in DEXTROSE 5% 50 ML IV ONE (20:35)
--- NOTE | 2020-08-04 21:38 | Post Operative Brief Note ---
Immediate Post Op Note v1 Date of Surgery August 04, 2020 Pre & Post Diagnosis Operation Date: 08/04/20 19:00 Pre-Op Diagnosis: Duodenal ulcer perforation Post-Op Diagnosis: Duodenal ulcer perforation I identified the patient and participated in the time-out.: Yes Procedure Operation Date: 08/04/20 19:00 Actual Procedures p Exploratory Laparotomy, Repair of Perforated Duodenal Ulcer - Terry Dey MD Surgeon Terry Dey MD Supervisor Transferring And Boxing None Estimated Blood Loss 10 Findings Consistent with Post-Op Diagnosis Drains Bee Catheter and Matthew-Miner Drain (10mm Flat)
--- NOTE | 2020-08-04 22:33 | Anesthesiology Progress Note ---
Date of Service August 04, 2020 Anesthesia Post Procedure Vital Signs Vital Signs: Temp Pulse Pulse Resp BP BP Pulse Ox 08/04/20 22:20 93 H 20 166/89 H 91 08/04/20 22:10 92 H 20 143/118 H 96 08/04/20 22:00 94 H 20 155/89 H 91 08/04/20 21:50 36.6 C 80 18 149/88 H 91 08/04/20 19:15 117 H 22 131/98 91 08/04/20 18:30 110 H 24 154/112 H 92 08/04/20 18:15 99 H 19 144/97 H 93 08/04/20 18:00 99 H 20 144/96 H 93 08/04/20 17:46 90 20 156/87 H 93 08/04/20 17:37 86 17 135/91 94 08/04/20 17:30 99 H 25 H 94 08/04/20 17:27 88 22 163/112 H 94 08/04/20 17:09 83 25 H 95 08/04/20 17:03 84 25 H 95/81 L 94 08/04/20 16:56 37.2 C 103 H 20 149/84 H 99 Pain Intensity Abdomen: Pain Intensity: 4 Transfer of Care Handoff Completed per policy Notes Mental Status: alert / awake / arousable Patient Amnestic to Procedure: Yes Nausea / Vomiting: adequately controlled Pain: adequately controlled Airway Patency, RR, SpO2: stable & adequate BP & HR: stable & adequate Hydration State: stable & adequate Anesthetic Complications: no major complications apparent
[2020-08-04] MEDS: PANTOprazole 40 MG in DEXTROSE 5% 100 ML IV SCH (23:52)
[2020-08-05] MEDS: NSS + 20MEQ KCL 20 MEQ/1,000 ML BAG IV SCH ×3 (01:00→20:05)
--- NOTE | 2020-08-05 01:35 | Operative Report (OR) ---
DATE OF OPERATION: 08/04/2020 PREOPERATIVE DIAGNOSIS: Perforated duodenal ulcer. POSTOPERATIVE DIAGNOSIS: Perforated duodenal ulcer. PROCEDURE: Exploratory laparotomy with closure of a duodenal ulcer and placement of Gagandeep patch. SURGEON: Terry Dey MD FINDINGS: There was a bilious material in the abdomen noted upon opening the peritoneum. An ulcer on the 2nd portion of the duodenum on the anterior wall measuring 1.5 cm. There were no other ulcers noted. The stomach was normal. The liver was slightly enlarged. It had a smooth surface; however. The remainder of the visible bowel appeared normal. The NG tube was in good position. TECHNIQUE: The patient was given a general anesthetic and the area was prepped and draped in the usual sterile fashion. Vertical midline incision was made in the upper abdomen, carried down through the subcutaneous tissue to the fascia, which was opened in the midline. The peritoneum was identified, incised and the abdomen was entered. The layers were opened along the length of the skin incision. I then noted the bilious fluid in the upper abdomen. The anterior wall of the stomach was inspected and was normal. I then worked along the duodenum and discovered the perforation. I opened the incisions more superiorly for better exposure. The colon was retracted inferiorly and the liver superiorly for better exposure. I could identify the entire circumference of the perforation. The perforation was then closed with interrupted 2-0 silk sutures. The omentum was then brought superiorly and placed over the area of perforation and the limbs of the suture was then used to secure the omental fat over the perforation. The abdomen and especially right upper quadrant was then irrigated with a copious amount of saline solution which was removed. A separate stab incision was made laterally through which a 10 mm Matthew-Miner drain was brought. It was placed in the subhepatic space. The NG tube was palpated and felt to be in good position. The drain was secured at the skin level with 3-0 nylon. The fascia was then closed with a running #1 PDS. A 1/4 inch [place] was placed in the subcutaneous space. The skin was closed over with jaci. The drain was secured at the top and bottom with 3-0 nylon suture. The estimated blood loss was 10 mL Sponge, needle and instrument counts were correct prior to closure. The patient tolerated the surgical procedure without complication and was transferred to recovery. I attest to the content of the Intraoperative Record and any orders documented therein. Any exception s are noted below.
[2020-08-05] MEDS: MoRPHine SULFATE 4 MG/ML 1 ML CARP\\VIAL IV PRN ×3 (04:05→18:52)
[2020-08-05] MEDS: PANTOprazole 40 MG in DEXTROSE 5% 100 ML IV SCH ×4 (04:05→19:21)
[2020-08-05] MEDS ORDERED: OXYCODONE/ACETAMINOPHEN 5mg/325mg TAB PO PRN ×2 (12:49)
[2020-08-05] MEDS ORDERED: MoRPHine SULFATE 2 MG/ML CARP IV PRN (12:49)
[2020-08-05] MEDS ORDERED: ACETAMINOPHEN 325 MG TAB PO PRN (12:49)
--- NOTE | 2020-08-05 13:10 | Surgery Progress Note ---
Date of Service August 05, 2020 Assessment & Plan (1) Duodenal ulcer perforation: POD # 0.5 s/p ex lap with repair of perforated duodenal ulcer with grahm patch -vital stable, afebrile - currently requiring oxygen via oxymask at 5 liters - postop pain moderate, controlled - adequate urine output - NGT with bilious output Plan: Continue IV morphine prn pain, will add PO pain meds for when NGT removed (likely not until Saturday) Continue NPO Continue NGT to LIS Continue Bee, nurse driven protocol to remove Dressing changes as needed Start Lovenox 30 mg sq tomorrow am, scds incentive spirometry 10x/hour while awake recommended continue krystal drain Continue IV cefoxitin OOB to chair and ambulate Will order upper GI study on Saturday with gastrografin via NGT to rule out leak Dr. Kemp covering this weekend. Dr. Dey has seen and examined pt, agrees with above. Admission and Anticipated Discharge Date Admission Date: August 04, 2020 Subjective having pain but improved compared to preop pain, some burning pain at incision no nausea or vomiting per nurse has been out of bed already today Physical Exam Constitutional: WD/WN, vitals as above no acute distress and not ill appearing Respiratory: normal respiratory effort; no respiratory distress, no labored breathing, no retractions and does not use accessory muscles currently has oxymask at 5 liters Gastrointestinal (Abdomen): Inspection/Auscultation: abdomen normal to inspection and + abdominal surgical drain present (serosanguineous); abdomen not distended Percussion/Palpation: + abdomen tender (generalized and at incision site, appropriate postop) and abdomen soft; no guarding and abdomen not rigid Skin: no rashes, warm and dry + incision (Midline incision with jaci and kathy drain, c/d/i) Psychiatric: Orientation: alert and oriented x 3 Results & Data ([facility]) Vital Signs (Past 12 Hours) Vital Signs Temp Pulse Pulse Resp BP BP Pulse Ox 08/05/20 12:33 36.4 C L 91 H 16 114/67 97 08/05/20 07:33 37.2 C 92 H 16 102/64 95 08/05/20 03:56 36.7 C 97 H 18 117/74 96
[2020-08-06] MEDS: PANTOprazole 40 MG in DEXTROSE 5% 100 ML IV SCH ×5 (00:22→20:26)
[2020-08-06] MEDS: MoRPHine SULFATE 2 MG/ML CARP IV PRN ×2 (03:00→10:34)
[2020-08-06] MEDS: NSS + 20MEQ KCL 20 MEQ/1,000 ML BAG IV SCH ×3 (05:05→13:45)
[2020-08-06 07:07] LABS: BUN Creatinine Ratio 24.8 (10-20); Calcium 8.3 mg/dl (8.5-10.1); Creatinine Clr Calc Pharmacy 125.9 ml/min; Est GFR (African American) 112.1; Est GFR (Non-African American) 96.7; Potassium 4.3 mmol/L (3.5-5.1)
[2020-08-06 07:36] LABS: Basophils # (auto) 0.01 K/uL (0-0.2); Basophils % (auto) 0.1 %; Eosinophils # (auto) 0.09 K/uL (0-0.5); Eosinophils % (auto) 0.9 %; Hematocrit (blood only) 38.3 % (42-52); Hemoglobin 12.2 g/dL (14.0-18.0); Immature Granulocytes # (auto) 0.03 K/uL (0.00-0.02); Immature Granulocytes % (auto) 0.3 %; Lymphocytes # (auto) 1.54 K/uL (1.2-3.4); Lymphocytes % (auto) 14.8 %; Mean Corpuscular Hgb Conc 31.9 g/dL (32-36); Mean Corpuscular Volume 97.5 fL (80-100); Mean Platelet Volume 10.1 fL (7.4-10.4); Monocytes # (auto) 1.09 K/uL (0.11-0.59); Monocytes % (auto) 10.5 %; Neutrophils # (auto) 7.62 K/uL (1.4-6.5); Neutrophils % (auto) 73.4 %; Platelet Count 180 K/uL (130-400); RDW Standard Deviation 53.5 fL (36.4-46.3); Red Blood Count 3.93 M/uL (4.7-6.1); White Blood Count 10.38 K/uL (4.8-10.8)
--- NOTE | 2020-08-06 08:44 | Surgery Progress Note ---
Date of Service August 06, 2020 Assessment & Plan (1) Duodenal ulcer perforation: on Lovenox cont NG UOP marginal but labs ok seen with Dr. Kemp Admission and Anticipated Discharge Date Admission Date: August 04, 2020 Subjective no c/o, pain managed Physical Exam Gastrointestinal (Abdomen): Inspection/Auscultation: + abdomen distended (mild), + abdominal surgical incision (dressing dry, drain serosang) and + abdominal surgical drain present Percussion/Palpation: abdomen soft Results & Data [facility]) Vital Signs (Past 12 Hours) Vital Signs Temp Pulse Resp BP Pulse Ox 08/06/20 07:23 36.7 C 90 20 137/68 95 08/06/20 00:18 37.1 C 104 H 21 121/71 93 PG Care Time/CCT Total # of Minutes Spent Total Time Spent with Patient: Total time spent is greater than 50% in coordination of care (as documented) at patient's floor/unit and/or counseling patient: Coding Level of Care Code 42828 Subseq Hosp Care Lvl 1 Diagnoses Duodenal ulcer perforation K26.5
[2020-08-06] MEDS: ENOXAPARIN INJ 30 MG/0.3 ML SYR SQ SCH (08:48)
[2020-08-06] MEDS: MoRPHine SULFATE 4 MG/ML 1 ML CARP\\VIAL IV PRN ×2 (15:33→22:51)
--- NOTE | 2020-08-06 22:54 | Electrocardiogram Report ---
Test Reason : Blood Pressure : / mmHG Vent. Rate : 090 BPM Atrial Rate : 090 BPM P-R Int : 166 ms QRS Dur : 096 ms QT Int : 360 ms P-R-T Axes : 052 048 055 degrees QTc Int : 440 ms Normal sinus rhythm Normal ECG No previous ECGs available Confirmed by Joseluis Polk ([id number]) on 08/06/2020 10:54:17 PM Referred By: REFERRED SELF Confirmed By:Joseluis Polk
[2020-08-07] MEDS: NSS + 20MEQ KCL 20 MEQ/1,000 ML BAG IV SCH ×2 (00:05→09:03)
[2020-08-07] MEDS: PANTOprazole 40 MG in DEXTROSE 5% 100 ML IV SCH ×5 (01:59→21:45)
[2020-08-07 05:47] LABS: Basophils # (auto) 0.01 K/uL (0-0.2); Basophils % (auto) 0.1 %; Eosinophils # (auto) 0.23 K/uL (0-0.5); Eosinophils % (auto) 2.5 %; Hematocrit (blood only) 37.9 % (42-52); Hemoglobin 12.4 g/dL (14.0-18.0); Immature Granulocytes # (auto) 0.03 K/uL (0.00-0.02); Immature Granulocytes % (auto) 0.3 %; Lymphocytes # (auto) 1.31 K/uL (1.2-3.4); Lymphocytes % (auto) 14.4 %; Mean Corpuscular Hemoglobin 31.5 pg (25-34); Mean Corpuscular Hgb Conc 32.7 g/dL (32-36); Mean Corpuscular Volume 96.2 fL (80-100); Mean Platelet Volume 9.7 fL (7.4-10.4); Monocytes # (auto) 0.77 K/uL (0.11-0.59); Monocytes % (auto) 8.5 %; Neutrophils # (auto) 6.74 K/uL (1.4-6.5); Neutrophils % (auto) 74.2 %; Platelet Count 182 K/uL (130-400); RDW Coefficient of Variation 14.4 % (11.5-14.5); RDW Standard Deviation 51.4 fL (36.4-46.3); Red Blood Count 3.94 M/uL (4.7-6.1); White Blood Count 9.09 K/uL (4.8-10.8)
[2020-08-07] MEDS: MoRPHine SULFATE 2 MG/ML CARP IV PRN ×3 (05:48→15:36)
[2020-08-07 06:08] LABS: BUN Creatinine Ratio 24.9 (10-20); Calcium 8.4 mg/dl (8.5-10.1); Creatinine Clr Calc Pharmacy 146.6 ml/min; Est GFR (African American) 119.4
[2020-08-07] MEDS ORDERED: CHLORASEPTIC 1.4% SOLN 180 ML BTL MT PRN (08:30)
--- NOTE | 2020-08-07 08:30 | Surgery Progress Note ---
Date of Service August 07, 2020 Assessment & Plan (1) Duodenal ulcer perforation: s/p exlap and repair of duodenal ulcer WBC:9; pt afebrile. Continue on IV abx keep ngt (575cc output) in place for now until contrast study; ordered for tomorrow surgical dressings changed at bedside; wound appears c/d/i. CHUCK drain serosang with 120cc output okay to remove funk catheter continue IS and weaning off oxygen to room air encourage ongoing ambulation today pt seen and examined with Dr. Kemp Admission and Anticipated Discharge Date Admission Date: August 04, 2020 Subjective Patient resting in bed. Says he feels pretty good. Has been up in the chair some yesterday. Physical Exam Physical Exam: awake/alert Gastrointestinal (Abdomen): Inspection/Auscultation: + abdominal surgical incision (c/d/i with midline jaci & kathy) and + abdominal surgical drain present (CHUCK drain serosang.; NGT with bilious output) Percussion/Palpation: abdomen soft Results & Data ([facility] [place]) Vital Signs (Past 12 Hours) Vital Signs Temp Pulse Resp BP Pulse Ox 08/07/20 07:33 36.7 C 90 18 160/89 H 95 08/06/20 23:52 36.5 C 91 H 18 127/75 93 PG Care Time/CCT Total # of Minutes Spent Total Time Spent with Patient: Total time spent is greater than 50% in coordination of care (as documented) at patient's floor/unit and/or counseling patient: Coding Level of Care Code 54596 Subseq Hosp Care Lvl 1 Diagnoses Duodenal ulcer perforation K26.5
[2020-08-07] MEDS: ENOXAPARIN INJ 30 MG/0.3 ML SYR SQ SCH (09:08)
[2020-08-07] MEDS ORDERED: FUROSEMIDE 40 MG in SYRINGE 0 ML IV ONE (17:47)
--- NOTE | 2020-08-07 17:49 | Internal Medicine Consult Note ---
Date of Consultation August 07, 2020 Assessment & Plan (1) Duodenal ulcer perforation: Volume overload causing Hypertension -This is a 64 year old who was taking both aspirin and meloxicam at home in recent weeks because of knee pains and then experienced abdominal and found to have Duodenal ulcer perforation. He has had Exploratory Laparotomy and Repair of Perforated Duodenal Ulcer by general surgery service Dr. Dey. Hospitalist medicine was consulted as to why patient with no history of hypertension has systolic blood pressure of 170 while with adequate pain control. When hospitalist entered the patient room, patient had 3 IV drips - fluids of 120 cc/hr, IV pantoprazole, and IV antibiotic. Patient has NG tube with suction but no acute distress and no acute abdominal. It became obvious that the source of elevated blood pressure was from too much IV fluids. Fortunately, patient was has been breathing comfortably on room air. There is some mild edema of lower extremities. on review of systems, patient denied acute chest pain. no dizziness. no headache. no vomiting. -stop the IV fluids with potassium, give IV Lasix 40 mg x 1 as ordered on 08/07/2020 by hospitalist -continue current NPO status and NG tube with suction and IV pantoprazole as per general surgery service -perform daily weights -follow the electrolyte labs on 08/08/[address] colleague hospitalist Dr. Rosenthal will be following the patient as travel sales consultant to assist general surgery service starting on 08/08/2020 History of Present Illness Reason for Consultation: Hypertension Requesting Physician: Dr. Terry Dey Attending Physician: Terry Dey MD History of Present Illness This is a 64 year old who was taking both aspirin and meloxicam at home in recent weeks because of knee pains and then experienced abdominal and found to have Duodenal ulcer perforation. He has had Exploratory Laparotomy and Repair of Perforated Duodenal Ulcer by general surgery service Dr. Dey. Hospitalist medicine was consulted as to why patient with no history of hypertension has systolic blood pressure of 170 while with adequate pain control. When hospitalist entered the patient room, patient had 3 IV drips - fluids of 120 cc/hr, IV pantoprazole, and IV antibiotic. Patient has NG tube with suction but no acute distress and no acute abdominal. It became obvious that the source of elevated blood pressure was from too much IV fluids. Fortunately, patient was has been breathing comfortably on room air. There is some mild edema of lower extremities. on review of systems, patient denied acute chest pain. no dizziness. no headache. no vomiting. Family Health history; cancer in brother, myocardial infarction in father, dementia in mother Allergies Allergy/AdvReac Type Severity Reaction Status Date / Time No Known Allergies Allergy Unverified 08/04/20 18:59 Home Medications Home Medications Medication Instructions Recorded Confirmed Type meloxicam 15 mg PO DAILY 08/04/20 08/04/20 History Patient History Medical History Abdominal pain Acute duodenitis Duodenal ulcer perforation Obesity Snoring SOB (shortness of breath) Surgical History Hx of tonsillectomy Social History Smoking Status: Former smoker Do You Dip or Chew Tobacco: No; Hx Alcohol Use: No Hx Substance Use: No Preferred Language: [place] Communication Ability: Effective Brewing Director Required: No Beliefs That Will Affect Care: None Current Living Situation: Alone Feels Safe at Home: Yes Review of Systems Review of Systems: All systems reviewed & are unremarkable except as noted in Subjective Physical Exam Constitutional: comfortable Eyes: PERRL, conjunctivae normal, anicteric sclerae EOM intact bilaterally ENMT: has NG tube with suctioning Neck: trachea midline, no thyromegaly normal visual inspection Respiratory: normal respiratory effort, lungs clear to auscultation Cardiovascular: Rate/Rhythm: regular rate Gastrointestinal (Abdomen): normal bowel sounds, soft, nontender, no hepatosplenomegaly Musculoskeletal: Head/Neck/Chest: normocephalic and head atraumatic mild lower extremity edema Neurologic: PERRL, EOMI, accommodation nl, no face palsy, no dysarthria CN's II-XI intact bilaterally Psychiatric: A+Ox3, euthymic affect Results & Data ([facility]) Vital Signs (Past 12 Hours) Vital Signs Temp Pulse Resp BP BP Pulse Ox 08/07/20 16:41 170/94 H 08/07/20 16:40 99 H 18 173/92 H 95 08/07/20 15:47 36.7 C 85 17 173/94 H 94 08/07/20 07:33 36.7 C 90 18 160/89 H 95
[2020-08-08] MEDS: PANTOprazole 40 MG in DEXTROSE 5% 100 ML IV SCH ×6 (02:53→23:32)
[2020-08-08 06:27] LABS: Basophils # (auto) 0.02 K/uL (0-0.2); Basophils % (auto) 0.2 %; Eosinophils # (auto) 0.26 K/uL (0-0.5); Hematocrit (blood only) 38.9 % (42-52); Hemoglobin 13.7 g/dL (14.0-18.0); Immature Granulocytes # (auto) 0.05 K/uL (0.00-0.02); Immature Granulocytes % (auto) 0.6 %; Lymphocytes # (auto) 1.31 K/uL (1.2-3.4); Lymphocytes % (auto) 15.1 %; Mean Corpuscular Hemoglobin 32.5 pg (25-34); Mean Corpuscular Hgb Conc 35.2 g/dL (32-36); Mean Corpuscular Volume 92.2 fL (80-100); Monocytes # (auto) 0.78 K/uL (0.11-0.59); Neutrophils # (auto) 6.26 K/uL (1.4-6.5); Neutrophils % (auto) 72.1 %; Platelet Count 225 K/uL (130-400); RDW Coefficient of Variation 13.8 % (11.5-14.5); RDW Standard Deviation 46.2 fL (36.4-46.3); Red Blood Count 4.22 M/uL (4.7-6.1); White Blood Count 8.68 K/uL (4.8-10.8)
[2020-08-08 06:55] LABS: Albumin Level 2.7 gm/dl (3.4-5.0); BUN Creatinine Ratio 21.7 (10-20); Calcium 8.9 mg/dl (8.5-10.1); Creatinine Clr Calc Pharmacy 118.8 ml/min; Est GFR (African American) 109.8; Est GFR (Non-African American) 94.8; Magnesium 2.3 mg/dl (1.8-2.4); Potassium 3.3 mmol/L (3.5-5.1)
[2020-08-08 06:59] LABS: Albumin Globulin Ratio 0.6 (0.9-2); Bilirubin,Total 0.8 mg/dl (0.2-1); Globulin 4.6 gm/dl (2.5-4.0); Phosphorus 2.9 mg/dl (2.5-4.9); Total Protein 7.3 gm/dl (6.4-8.2)
[2020-08-08] MEDS: ENOXAPARIN INJ 30 MG/0.3 ML SYR SQ SCH (08:10)
[2020-08-08] MEDS: POTASSIUM CHLORIDE / WTR 10 MEQ/100 ML PLCT IV SCH ×2 (08:13→09:13)
[2020-08-08] MEDS ORDERED: HydrALAZINE HCL 20 MG/ML VIAL IV PRN (08:29)
--- NOTE | 2020-08-08 08:45 | Surgery Progress Note ---
Date of Service August 08, 2020 Assessment & Plan (1) Duodenal ulcer perforation: S/p exlap and repair of duodenal ulcer NGT remains in place, draining 625cc. If Radiology is available a leak test has been ordered for today via NGT, if not able to perform it due to the holiday it will have to be postponed for tomorrow Hospitalists have been consulted for assistance with HTN, they believe related to volume overload. Appreciate their help with pt Some bloody drainage noted from midline incision this AM, we will hold Lovenox for now although it has been given this AM. We will continue to monitor He remains on IV mefoxin Continue to encourage ambulation Pt. seen and examined with Dr. Kemp Admission and Anticipated Discharge Date Admission Date: August 04, 2020 Subjective Patient states he is feeling well. He has been voiding without issues. He is starting to ambulate more. Endorses + bowel function. Physical Exam Physical Exam: awake/alert Respiratory: normal respiratory effort Gastrointestinal (Abdomen): Inspection/Auscultation: + abdomen distended (mild) Percussion/Palpation: abdomen soft Some bloody drainage noted from midline incision w/ kathy drain in place. some surrounding erythema ?reaction from tape CHUCK 65cc serosang. Results & Data ([facility]) Vital Signs (Past 12 Hours) Vital Signs Temp Pulse Resp BP Pulse Ox 08/08/20 07:09 36.9 C 89 20 175/67 H 92 08/08/20 02:25 92 08/08/20 02:10 95 08/07/20 23:16 37.2 C 87 19 164/83 H 95 08/07/20 21:34 91 H 160/84 H PG Care Time/CCT Total # of Minutes Spent Total Time Spent with Patient: Total time spent is greater than 50% in coordination of care (as documented) at patient's floor/unit and/or counseling patient: Coding Level of Care Code None Diagnoses Duodenal ulcer perforation K26.5
[2020-08-08] MEDS: AMLODIPINE BESYLATE 5 MG TAB PO SCH (09:16)
--- NOTE | 2020-08-08 09:48 | XRay Report ---
SINGLE VIEW CHEST CLINICAL HISTORY: Pneumonia. FINDINGS: An AP, portable, upright chest radiograph is correlated with chest CT dated 08/04/2020. The e xamination is degraded by portable technique and patient rotation. An enteric tube has been placed. T he tip projects below the diaphragm The cardiomediastinal silhouette is unremarkable. Emphysema and c hronic interstitial thickening are similar to previous. There is elevation of the right hemidiaphragm with right basilar consolidation. A trace right pleural effusion is suspected. The left lung appears clear noting basilar atelectasis. No pneumothorax is seen. The bony thorax is grossly intact. IMPRESSION: 1. An enteric tube has been placed. 2. There is right basilar consolidation and a small right pleural effusion. Correlate clinically for evidence of pneumonia/aspiration pneumonitis. Radiographic follow-up to resolution is recommended. 3. Emphysema. ACT 112: Negative or not required by law. Electronically signed by: Jason Doshi M.D. 08/08/2020 9:46 AM
--- NOTE | 2020-08-08 11:02 | Hospitalist Progress Note ---
Date of Service August 08, 2020 Assessment & Plan (1) Duodenal ulcer perforation: This is a 64 year old who was taking both aspirin and meloxicam at home in recent weeks because of knee pains and then experienced abdominal and found to have Duodenal ulcer perforation. He has had Exploratory Laparotomy and Repair of Perforated Duodenal Ulcer by general surgery service Dr. Dey. On 08/04/2020 POD #4 Remains n.p.o. with nasogastric suction Management will be as per surgery Emphysema History of smoking No acute symptoms We will not give any medications now (2) Hypertension: Noted to have persistently high blood pressure following surgery Likely secondary to volume overload with known history of hypertension past IV fluids have been discontinued and received Lasix with good diuresis Will give hydralazine as needed to maintain blood pressure Without any need for continued blood pressure medications on discharge (3) Right lower lobe pneumonia: Chest x-ray did show right lower lobe infiltration with minimal right pleural effusion Likely due to aspiration pneumonia We will add Flagyl on top of current antibiotic Discharge home on Augmentin Obesity CT of the abdomen pelvis did show severe steatosis Advised to decrease weight Admission and Anticipated Discharge Date Admission Date: August 04, 2020 Subjective 08/08/2020 The patient was seen and examined in medical floor He is status post repair of perforated duodenal ulcer on 08/04/2020 Internal medicine was consulted due to high blood pressure following surgery Complains of abdominal pain and discomfort but denies any other significant symptoms Review of Systems Review of Systems: All systems reviewed and are unremarkable except as noted below Respiratory: no cough and no dyspnea Gastrointestinal: + abdominal pain and + bloating; no nausea and no vomiting Physical Exam Physical Exam: Sitting on a chair with discomfort due to abdominal bloating and pain Constitutional: well developed, well nourished, + acute distress, + ill appearing and + obese Eyes: PERRL, conjunctivae normal, anicteric sclerae ENMT: external ear and nose normal, oropharynx normal Neck: trachea midline, no thyromegaly Respiratory: normal respiratory effort; no respiratory distress Auscultation: + diminished lung sounds (Diminished breath sound right base with occasional crackles) Cardiovascular: Rate/Rhythm: regular rate and regular rhythm Heart Sounds: no murmur Gastrointestinal (Abdomen): Inspection/Auscultation: + abdomen distended and normal bowel sounds Percussion/Palpation: + abdomen tender and abdomen soft Musculoskeletal: No acute arthritis involving any joints Neurologic: moves all extremities; no focal motor deficits Results & Data Results & Data ([facility]) Vital Signs (Past 12 Hours) Vital Signs Temp Pulse Resp BP Pulse Ox 08/08/20 09:16 152/84 H 08/08/20 07:09 36.9 C 89 20 175/67 H 92 08/08/20 02:25 92 08/08/20 02:10 95 08/07/20 23:16 37.2 C 87 19 164/83 H 95 Laboratory Results Short CBC 08/08/20 Range/Units 05:58 WBC 8.68 (4.8-10.8) K/uL Hgb 13.7 L (14.0-18.0) g/dL Hct 38.9 L (42-52) % Plt Count 225 (130-400) K/uL BMP 08/08/20 05:58 Sodium 138 Potassium 3.3 L D Chloride 104 Carbon Dioxide 27 BUN 18 Creatinine 0.82 Glucose 106 H Calcium 8.9 Liver Function 08/08/20 Range/Units 05:58 Total Bilirubin 0.8 (0.2-1) mg/dl AST 24 (15-37) U/L ALT 32 (12-78) U/L Alkaline Phosphatase 68 (45-117) U/L Albumin 2.7 L (3.4-5.0) gm/dl Medications Administered Current Inpatient Medications Acetaminophen (Acetaminophen 325 Mg Tab) 650 mg PO Q4H PRN PRN Reason: Mild Pain Stop: 09/04/20 12:48 Amlodipine Besylate (Amlodipine Besylate 5 Mg Tab) [facility] [place] Stop: 09/07/20 08:59 Last Admin: 08/08/20 09:16 Dose: Not Given Documented by: Enoxaparin Sodium (Enoxaparin Inj 30 Mg/0.3 Ml Syr) 30 mg SQ QAM [facility] [place] Stop: 09/05/20 08:59 Last Admin: 08/08/20 08:10 Dose: 30 mg Documented by: Hydralazine HCl (Hydralazine Hcl 20 Mg/Ml Vial) 5 mg IV Q6H PRN PRN Reason: Blood Pressure - High Stop: 09/07/20 08:28 Pantoprazole Sodium 40 mg/ (Dextrose) 100 mls @ 20 mls/hr IV Q5H PREET Stop: 09/03/20 23:29 Last Admin: 08/08/20 08:20 Dose: 8 mg/hr, 20 mls/hr Documented by: Cefoxitin Sodium 1,000 mg/ (Dextrose) 60 mls @ 100 mls/hr IV Q6H PREET Stop: 08/15/20 01:59 Last Infusion: 08/08/20 09:13 Dose: Infused Documented by: Morphine Sulfate (Morphine Sulfate 4 Mg/Ml 1 Ml Carp\Vial) 4 mg IV Q1H PRN PRN Reason: Severe Pain Stop: 08/18/20 22:55 Last Admin: 08/06/20 22:51 Dose: 4 mg Documented by: Morphine Sulfate (Morphine Sulfate 2 Mg/Ml Carp) 2 mg IV Q1H PRN PRN Reason: Moderate Pain Stop: 08/19/20 12:48 Last Admin: 08/07/20 15:36 Dose: 2 mg Documented by: Morphine Sulfate (Morphine Sulfate 2 Mg/Ml Carp) 1 mg IV Q1H PRN PRN Reason: Mild Pain Stop: 08/19/20 12:48 Ondansetron HCl (Ondansetron Inj 2 Mg/Ml 2 Ml Vial) 4 mg IV Q6H PRN PRN Reason: nausea Stop: 09/03/20 22:55 Last Admin: 08/05/20 09:08 Dose: 4 mg Documented by: Oxycodone/Acetaminophen (Oxycodone/Acetaminophen 5mg/325mg Tab) 1 tab PO Q4H PRN PRN Reason: Pain Stop: 08/19/20 12:48 Oxycodone/Acetaminophen (Oxycodone/Acetaminophen 5mg/325mg Tab) 2 tab PO Q4H PRN PRN Reason: severe pain Stop: 08/19/20 12:48 Phenol (Chloraseptic 1.4% Soln 180 Ml Btl) 2 sprays MT Q2H PRN PRN Reason: sore throat Stop: 09/06/20 08:29 Last Admin: 08/07/20 13:46 Dose: 2 sprays Documented by:
[2020-08-08] MEDS: metroNIDAZOLE 500 MG/100 ML BAG IV SCH ×2 (12:06→20:31)
[2020-08-09] MEDS: metroNIDAZOLE 500 MG/100 ML BAG IV SCH ×3 (03:26→20:10)
[2020-08-09] MEDS: PANTOprazole 40 MG in DEXTROSE 5% 100 ML IV SCH ×4 (04:22→20:55)
[2020-08-09 05:42] LABS: Basophils # (auto) 0.02 K/uL (0-0.2); Basophils % (auto) 0.2 %; Eosinophils # (auto) 0.28 K/uL (0-0.5); Eosinophils % (auto) 3.3 %; Hematocrit (blood only) 39.6 % (42-52); Hemoglobin 13.3 g/dL (14.0-18.0); Immature Granulocytes # (auto) 0.06 K/uL (0.00-0.02); Immature Granulocytes % (auto) 0.7 %; Lymphocytes # (auto) 1.75 K/uL (1.2-3.4); Lymphocytes % (auto) 20.8 %; Mean Corpuscular Hemoglobin 31.1 pg (25-34); Mean Corpuscular Hgb Conc 33.6 g/dL (32-36); Mean Corpuscular Volume 92.5 fL (80-100); Mean Platelet Volume 9.6 fL (7.4-10.4); Monocytes # (auto) 0.92 K/uL (0.11-0.59); Neutrophils # (auto) 5.37 K/uL (1.4-6.5); Platelet Count 253 K/uL (130-400); RDW Coefficient of Variation 13.7 % (11.5-14.5); RDW Standard Deviation 46.6 fL (36.4-46.3); Red Blood Count 4.28 M/uL (4.7-6.1)
[2020-08-09 06:26] LABS: BUN Creatinine Ratio 26.7 (10-20); Calcium 8.8 mg/dl (8.5-10.1); Creatinine Clr Calc Pharmacy 126.5 ml/min; Est GFR (African American) 112.7; Est GFR (Non-African American) 97.3; Potassium 3.3 mmol/L (3.5-5.1)
--- NOTE | 2020-08-09 07:08 | Surgery Progress Note ---
Date of Service August 09, 2020 Assessment & Plan (1) Duodenal ulcer perforation: Postoperative day #5 status post repair of perforated duodenal ulcer Contrast study scheduled for today. If there is no evidence of leak can DC NG tube and begin clear liquids Encouraged ambulation H&H stable White blood cell count normal Appreciate internal medicine assistance Admission and Anticipated Discharge Date Admission Date: August 04, 2020 Subjective Postoperative day #5 status post repair of perforated duodenal ulcer He feels well today Ambulating Had bowel movements and is passing flatus Denies nausea and vomiting Having very little pain Physical Exam Gastrointestinal (Abdomen): Inspection/Auscultation: normal bowel sounds and + abdominal surgical incision (Clean, dry and intact); abdomen not distended Percussion/Palpation: + abdomen tender (Mild incisional only) and abdomen soft Results & Data ([facility]) Vital Signs (Past 12 Hours) Vital Signs Temp Pulse Resp BP Pulse Ox 08/08/20 23:53 36.8 C 87 16 156/79 H 91 Laboratory Results 08/09/20 08/09/20 Range/Units 05:20 05:20 WBC 8.40 (4.8-10.8) K/uL RBC 4.28 L (4.7-6.1) M/uL Hgb 13.3 L (14.0-18.0) g/dL Hct 39.6 L (42-52) % MCV 92.5 (80-100) fL MCH 31.1 (25-34) pg MCHC 33.6 (32-36) g/dL RDW Std Deviation 46.6 H (36.4-46.3) fL RDW Coeff of Yan 13.7 (11.5-14.5) % Plt Count 253 (130-400) K/uL MPV 9.6 (7.4-10.4) fL Immature Gran % (Auto) 0.7 % Neut % (Auto) 64.0 % Lymph % (Auto) 20.8 % [place] % (Auto) 11.0 % Eos % (Auto) 3.3 % Baso % (Auto) 0.2 % Neut # (Auto) 5.37 (1.4-6.5) K/uL Lymph # (Auto) 1.75 (1.2-3.4) K/uL [place] # (Auto) 0.92 H (0.11-0.59) K/uL Eos # (Auto) 0.28 (0-0.5) K/uL Baso # (Auto) 0.02 (0-0.2) K/uL Immature Gran # (Auto) 0.06 H (0.00-0.02) K/uL Sodium 139 (136-145) mmol/L Potassium 3.3 L (3.5-5.1) mmol/L Chloride 105 (98-107) mmol/L Carbon Dioxide 26 (21-32) mmol/L Anion Gap 8.0 (3-11) BUN 21 H (7-18) mg/dl Creatinine 0.77 (0.6-1.4) mg/dl Est Cr Clr Drug Dosing 126.5 ml/min Est GFR ( Amer) 112.7 Est GFR (Non-Af Amer) 97.3 BUN/Creatinine Ratio 26.7 H (10-20) Glucose 103 H (70-99) mg/dl Calcium 8.8 (8.5-10.1) mg/dl Specimen Hemolysis
[2020-08-09] MEDS: AMLODIPINE BESYLATE 5 MG TAB PO SCH (08:19)
--- NOTE | 2020-08-09 09:33 | Fluoroscopy Report ---
[place] GI series CLINICAL HISTORY: r/o leak, gastrografin via NGT. Postop duodenal perforation. COMPARISON STUDY: Abdomen and pelvis CT 08/04/2020. FLUOROSCOPY TIME: 1 minute. FINDINGS: 10 fluoroscopic spot images of the abdomen were submitted. A nasogastric tube is seen withi n the distal stomach. There is a surgical drain within the right upper quadrant. There are midline sk in jaci. A total of 170 cc of Optiray 300 was injected through the indwelling nasogastric tube. Co ntrast seen within the distal stomach, duodenum, and proximal small bowel. No extra luminal contrast to suggest a leak. IMPRESSION: No extraluminal contrast identified within the duodenum to suggest a leak. ACT 112: Negative or not required by law. Electronically signed by: Radames Arteaga M.D. 08/09/2020 9:31 AM
--- NOTE | 2020-08-09 12:56 | Hospitalist Progress Note ---
Date of Service August 09, 2020 Assessment & Plan (1) Duodenal ulcer perforation: This is a 64 year old who was taking both aspirin and meloxicam at home in recent weeks because of knee pains and then experienced abdominal and found to have Duodenal ulcer perforation. He has had Exploratory Laparotomy and Repair of Perforated Duodenal Ulcer by general surgery service Dr. Dey. On 08/04/2020 POD #5 Status post imaging studies did not show any leak following surgery and repair of the perforation Surgery following Emphysema History of smoking No acute symptoms We will not give any medications now (2) Hypertension: Noted to have persistently high blood pressure following surgery Likely secondary to volume overload with known history of hypertension past IV fluids have been discontinued and received Lasix with good diuresis Will give hydralazine as needed to maintain blood pressure Without any need for continued blood pressure medications on discharge Amlodipine has been ordered-we will start as soon as patient starts eating (3) Right lower lobe pneumonia: Chest x-ray did show right lower lobe infiltration with minimal right pleural effusion Likely due to aspiration pneumonia We will add Flagyl on top of current antibiotic Discharge home on Augmentin No fever and/or chills and white count remains stable Obesity CT of the abdomen pelvis did show severe steatosis Advised to decrease weight Admission and Anticipated Discharge Date Admission Date: August 04, 2020 Subjective 08/08/2020 The patient was seen and examined in medical floor He is status post repair of perforated duodenal ulcer on 08/04/2020 Internal medicine was consulted due to high blood pressure following surgery Complains of abdominal pain and discomfort but denies any other significant symptoms 08/09/2020 The patient was seen and examined in medical floor He complains to have some abdominal discomfort but denies any other symptoms No fever and/or chills His bowel has been moving Review of Systems Review of Systems: All systems reviewed and are unremarkable except as noted below Gastrointestinal: + abdominal pain and + bloating; no nausea and no vomiting Physical Exam Physical Exam: Sitting on a chair with discomfort due to NGT in place Constitutional: well developed, well nourished, + acute distress, + ill appearing and + obese Eyes: PERRL, conjunctivae normal, anicteric sclerae ENMT: external ear and nose normal, oropharynx normal Neck: trachea midline, no thyromegaly Respiratory: normal respiratory effort; no respiratory distress Auscultation: + diminished lung sounds (Diminished breath sound right base with occasional crackles) Cardiovascular: Rate/Rhythm: regular rate and regular rhythm Heart Sounds: no murmur Gastrointestinal (Abdomen): Inspection/Auscultation: + abdomen distended and normal bowel sounds Percussion/Palpation: + abdomen tender and abdomen soft Musculoskeletal: No acute arthritis involving any joints Neurologic: moves all extremities; no focal motor deficits Alert, awake and oriented x3 Results & Data Results & Data ([facility]) Vital Signs (Past 12 Hours) Vital Signs Temp Pulse Resp BP Pulse Ox 08/09/20 09:49 154/94 H 08/09/20 07:46 36.6 C 97 H 18 164/99 H 94 Laboratory Results Short CBC 08/09/20 Range/Units 05:20 WBC 8.40 (4.8-10.8) K/uL Hgb 13.3 L (14.0-18.0) g/dL Hct 39.6 L (42-52) % Plt Count 253 (130-400) K/uL BMP 08/09/20 05:20 Sodium 139 Potassium 3.3 L Chloride 105 Carbon Dioxide 26 BUN 21 H Creatinine 0.77 Glucose 103 H Calcium 8.8 Medications Administered Current Inpatient Medications Acetaminophen (Acetaminophen 325 Mg Tab) 650 mg PO Q4H PRN PRN Reason: Mild Pain Stop: 09/04/20 12:48 Amlodipine Besylate (Amlodipine Besylate 5 Mg Tab) [facility] [place] Stop: 09/07/20 08:59 Last Admin: 08/09/20 08:19 Dose: Not Given Documented by: Enoxaparin Sodium (Enoxaparin Inj 30 Mg/0.3 Ml Syr) 30 mg SQ QAM [facility] Stop: 09/05/20 08:59 Last Admin: 08/08/20 08:10 Dose: 30 mg Documented by: Hydralazine HCl (Hydralazine Hcl 20 Mg/Ml Vial) 5 mg IV Q6H PRN PRN Reason: Blood Pressure - High Stop: 09/07/20 08:28 Pantoprazole Sodium 40 mg/ (Dextrose) 100 mls @ 20 mls/hr IV Q5H [facility] Stop: 09/03/20 23:29 Last Admin: 08/09/20 09:45 Dose: 8 mg/hr, 20 mls/hr Documented by: Cefoxitin Sodium 1,000 mg/ (Dextrose) 60 mls @ 100 mls/hr IV Q6H PREET Stop: 08/15/20 01:59 Last Infusion: 08/09/20 09:58 Dose: Infused Documented by: Metronidazole (Flagyl) 500 mg in 100 mls @ 100 mls/hr IV Q8H PRE[facility] Stop: 08/15/20 11:29 Last Admin: 08/09/20 12:35 Dose: 100 mls/hr Documented by: Morphine Sulfate (Morphine Sulfate 4 Mg/Ml 1 Ml Carp\Vial) 4 mg IV Q1H PRN PRN Reason: Severe Pain Stop: 08/18/20 22:55 Last Admin: 08/06/20 22:51 Dose: 4 mg Documented by: Morphine Sulfate (Morphine Sulfate 2 Mg/Ml Carp) 2 mg IV Q1H PRN PRN Reason: Moderate Pain Stop: 08/19/20 12:48 Last Admin: 08/07/20 15:36 Dose: 2 mg Documented by: Morphine Sulfate (Morphine Sulfate 2 Mg/Ml Carp) 1 mg IV Q1H PRN PRN Reason: Mild Pain Stop: 08/19/20 12:48 Ondansetron HCl (Ondansetron Inj 2 Mg/Ml 2 Ml Vial) 4 mg IV Q6H PRN PRN Reason: nausea Stop: 09/03/20 22:55 Last Admin: 08/05/20 09:08 Dose: 4 mg Documented by: Oxycodone/Acetaminophen (Oxycodone/Acetaminophen 5mg/325mg Tab) 1 tab PO Q4H PRN PRN Reason: Pain Stop: 08/19/20 12:48 Oxycodone/Acetaminophen (Oxycodone/Acetaminophen 5mg/325mg Tab) 2 tab PO Q4H PRN PRN Reason: severe pain Stop: 08/19/20 12:48 Phenol (Chloraseptic 1.4% Soln 180 Ml Btl) 2 sprays MT Q2H PRN PRN Reason: sore throat Stop: 09/06/20 08:29 Last Admin: 08/07/20 13:46 Dose: 2 sprays Documented by:
[2020-08-09] MEDS: POTASSIUM CHLORIDE / WTR 10 MEQ/100 ML PLCT IV SCH ×3 (13:38→16:32)
[2020-08-10] MEDS: PANTOprazole 40 MG in DEXTROSE 5% 100 ML IV SCH ×5 (01:39→19:53)
[2020-08-10] MEDS: metroNIDAZOLE 500 MG/100 ML BAG IV SCH ×3 (02:35→20:28)
[2020-08-10 06:18] LABS: Basophils # (auto) 0.03 K/uL (0-0.2); Basophils % (auto) 0.4 %; Eosinophils # (auto) 0.43 K/uL (0-0.5); Eosinophils % (auto) 5.5 %; Hematocrit (blood only) 40.1 % (42-52); Hemoglobin 13.5 g/dL (14.0-18.0); Immature Granulocytes # (auto) 0.12 K/uL (0.00-0.02); Immature Granulocytes % (auto) 1.5 %; Lymphocytes # (auto) 1.78 K/uL (1.2-3.4); Lymphocytes % (auto) 22.6 %; Mean Corpuscular Hemoglobin 31.3 pg (25-34); Mean Corpuscular Hgb Conc 33.7 g/dL (32-36); Mean Corpuscular Volume 92.8 fL (80-100); Monocytes # (auto) 0.86 K/uL (0.11-0.59); Monocytes % (auto) 10.9 %; Neutrophils # (auto) 4.65 K/uL (1.4-6.5); Neutrophils % (auto) 59.1 %; Platelet Count 262 K/uL (130-400); RDW Coefficient of Variation 14.1 % (11.5-14.5); RDW Standard Deviation 48.1 fL (36.4-46.3); Red Blood Count 4.32 M/uL (4.7-6.1); White Blood Count 7.87 K/uL (4.8-10.8)
[2020-08-10 06:54] LABS: BUN Creatinine Ratio 28.2 (10-20); Creatinine Clr Calc Pharmacy 114.5 ml/min; Est GFR (African American) 108.8; Est GFR (Non-African American) 93.8
--- NOTE | 2020-08-10 07:49 | Surgery Progress Note ---
Date of Service August 10, 2020 Assessment & Plan (1) Duodenal ulcer perforation: Postoperative day #6 status post repair of perforated duodenal ulcer Doing very well Advance to soft low fiber diet If tolerates that well plan for discharge tomorrow Plan for Protonix twice daily Admission and Anticipated Discharge Date Admission Date: August 04, 2020 Subjective Postoperative day #6 status post repair of perforated duodenal ulcer Contrast study yesterday showed no leak Started on clear liquids yesterday and tolerated them well Feeling very well today Having very little pain Bowels moving and passing flatus CHUCK had 30 cc out yesterday and 15 cc out last shift all serosanguineous Physical Exam Gastrointestinal (Abdomen): Inspection/Auscultation: normal bowel sounds and + abdominal surgical incision (Clean, dry and intact); abdomen not distended Percussion/Palpation: abdomen soft; abdomen nontender Results & Data ([facility]) Vital Signs (Past 12 Hours) Vital Signs Temp Pulse Resp BP Pulse Ox 08/09/20 23:20 36.8 C 77 20 150/89 H 94 Laboratory Results 08/10/20 08/10/20 08/10/20 Range/Units 07:19 05:32 05:32 WBC 7.87 (4.8-10.8) K/uL RBC 4.32 L (4.7-6.1) M/uL Hgb 13.5 L (14.0-18.0) g/dL Hct 40.1 L (42-52) % MCV 92.8 (80-100) fL MCH 31.3 (25-34) pg MCHC 33.7 (32-36) g/dL RDW Std Deviation 48.1 H (36.4-46.3) fL RDW Coeff of Yan 14.1 (11.5-14.5) % Plt Count 262 (130-400) K/uL MPV 10.0 (7.4-10.4) fL Immature Gran % (Auto) 1.5 % Neut % (Auto) 59.1 % Lymph % (Auto) 22.6 % [place] % (Auto) 10.9 % Eos % (Auto) 5.5 % Baso % (Auto) 0.4 % Neut # (Auto) 4.65 (1.4-6.5) K/uL Lymph # (Auto) 1.78 (1.2-3.4) K/uL [place] # (Auto) 0.86 H (0.11-0.59) K/uL Eos # (Auto) 0.43 (0-0.5) K/uL Baso # (Auto) 0.03 (0-0.2) K/uL Immature Gran # (Auto) 0.12 H (0.00-0.02) K/uL Sodium 140 (136-145) mmol/L Potassium Pending (3.5-5.1) mmol/L Chloride 107 (98-107) mmol/L Carbon Dioxide 27 (21-32) mmol/L Anion Gap 6.0 (3-11) BUN 24 H (7-18) mg/dl Creatinine 0.84 (0.6-1.4) mg/dl Est Cr Clr Drug Dosing 114.5 ml/min Est GFR ( Amer) 108.8 Est GFR (Non-Af Amer) 93.8 BUN/Creatinine Ratio 28.2 H (10-20) Glucose 101 H (70-99) mg/dl Calcium 9.0 (8.5-10.1) mg/dl
[2020-08-10] MEDS: AMLODIPINE BESYLATE 5 MG TAB PO SCH (09:16)
[2020-08-10] MEDS ORDERED: POTASSIUM CHLORIDE PWD 20 MEQ PACK PO STA (13:46)
--- NOTE | 2020-08-10 16:41 | Hospitalist Progress Note ---
Date of Service August 10, 2020 Assessment & Plan (1) Duodenal ulcer perforation: (1) Duodenal ulcer perforation: per Dr. Rosenthal's notes (previous hospitalist): This is a 64 year old who was taking both aspirin and meloxicam at home in recent weeks because of knee pains and then experienced abdominal and found to have Duodenal ulcer perforation. He has had Exploratory Laparotomy and Repair of Perforated Duodenal Ulcer by general surgery service Dr. Dey. On 08/04/2020 POD #6 Status post imaging studies did not show any leak following surgery and repair of the perforation diet advanced stable overall management of Hypertension and Pneumonia noted below Emphysema History of smoking not in exacerbation (2) Hypertension: per Dr. Rosenthal's notes (previous hospitalist): Noted to have persistently high blood pressure following surgery Likely secondary to volume overload with known history of hypertension past IV fluids have been discontinued and received Lasix with good diuresis Amlodipine 5mg po daily started BP improving (3) Right lower lobe pneumonia: per Dr. Rosenthal's notes (previous hospitalist): Chest x-ray did show right lower lobe infiltration with minimal right pleural effusion Likely due to aspiration pneumonia continue Cefoxitin Day 6 + Flagyl Day 3 Discharge home on Augmentin cough improving, afebrile (4) Obesity CT of the abdomen pelvis did show severe steatosis Advised to decrease weight Thank you for this consultation. We will follow the patient with you during their hospital stay. You can reach a member of the [facility] Hospitalist Team 24/06 via pager @ [phone]. Admission and Anticipated Discharge Date Admission Date: August 04, 2020 Subjective ff up for Duodenal Ulcer Perforation Resting in bed, comfortable, not in distress States he feels fine overall Tolerated soft diet for lunch No abdominal pain, nausea Positive loose stools this morning No chest pain, shortness of breath, palpitations, cough, dizziness Ambulating in the hallways with no problems Review of Systems Review of Systems: All systems reviewed & are unremarkable except as noted in HPI & below Physical Exam Physical Exam: General- oriented x 3, not in distress, speaks in sentences with no effort or accessory muscle use Eyes- anicteric Neck- no JVD Lungs- clear breath sounds bilaterally, no rales/wheezes Heart- normal rate, regular rhythm; no murmurs Abdomen- normal bowel sounds, nondistended, soft, nontender Dressing in place, no bleeding or discharge Extremities- no pretibial edema, no calf tenderness Neuro- alert, oriented x 3; no gross focal neurologic deficits Skin- warm & dry Results & Data Results & Data ([facility]) Vital Signs (Past 12 Hours) Vital Signs Temp Pulse Resp BP Pulse Ox 08/10/20 08:14 36.6 C 87 18 146/78 H 93 Laboratory Results Laboratory Results - last 24 hr 08/10/20 08/10/20 08/10/20 05:32 05:32 07:19 WBC 7.87 RBC 4.32 L Hgb 13.5 L Hct 40.1 L MCV 92.8 MCH 31.3 MCHC 33.7 RDW Std Deviation 48.1 H RDW Coeff of Yan 14.1 Plt Count 262 MPV 10.0 Immature Gran % (Auto) 1.5 Neut % (Auto) 59.1 Lymph % (Auto) 22.6 [place] % (Auto) 10.9 Eos % (Auto) 5.5 Baso % (Auto) 0.4 Neut # (Auto) 4.65 Lymph # (Auto) 1.78 [place] # (Auto) 0.86 H Eos # (Auto) 0.43 Baso # (Auto) 0.03 Immature Gran # (Auto) 0.12 H Sodium 140 Potassium 3.2 L Chloride 107 Carbon Dioxide 27 Anion Gap 6.0 BUN 24 H Creatinine 0.84 Est Cr Clr Drug Dosing 114.5 Est GFR ( Amer) 108.8 Est GFR (Non-Af Amer) 93.8 BUN/Creatinine Ratio 28.2 H Glucose 101 H Calcium 9.0
[2020-08-11] MEDS: PANTOprazole 40 MG in DEXTROSE 5% 100 ML IV SCH ×2 (00:34→04:50)
[2020-08-11] MEDS: metroNIDAZOLE 500 MG/100 ML BAG IV SCH (02:45)
--- NOTE | 2020-08-11 08:03 | Surgery Progress Note ---
Date of Service August 11, 2020 Assessment & Plan (1) Duodenal ulcer perforation: Postoperative day #7 status post repair of perforated duodenal ulcer Doing well Tolerating diet Bowels moving Can discharge to home Discussed postoperative activity restrictions Needs to follow-up next week for staple removal (2) Hypertension: Appreciate internal medicine input We will send prescription for amlodipine 5 mg daily (3) Right lower lobe pneumonia: Appreciate internal medicine input We will send a prescription for Augmentin Admission and Anticipated Discharge Date Admission Date: August 04, 2020 Subjective Postoperative day #7 status post repair of perforated duodenal ulcer Feels well Tolerated soft diet Denies nausea and vomiting Passing bowels and flatus Very little pain CHUCK at 15 cc out yesterday and 15 cc out last shift all serosanguineous Physical Exam Gastrointestinal (Abdomen): Inspection/Auscultation: normal bowel sounds and + abdominal surgical incision (Clean, dry and intact) Percussion/Palpation: abdomen soft; abdomen nontender Results & Data ([facility]) Vital Signs (Past 12 Hours) Vital Signs Temp Pulse Resp BP Pulse Ox 08/11/20 07:12 36.7 C 77 16 137/88 92 08/10/20 23:30 36.8 C 76 24 146/77 H 94
[2020-08-11] MEDS: AMLODIPINE BESYLATE 5 MG TAB PO SCH (09:13)
--- NOTE | 2020-08-11 18:40 | Hospitalist Progress Note ---
Date of Service August 11, 2020 Assessment & Plan (1) Duodenal ulcer perforation: (1) Duodenal ulcer perforation: per Dr. Rosenthal's notes (previous hospitalist): This is a 64 year old who was taking both aspirin and meloxicam at home in recent weeks because of knee pains and then experienced abdominal and found to have Duodenal ulcer perforation. He has had Exploratory Laparotomy and Repair of Perforated Duodenal Ulcer by general surgery service Dr. Dey. On 08/04/2020 POD #7 Status post imaging studies did not show any leak following surgery and repair of the perforation diet advanced stable overall management of Hypertension and Pneumonia noted below Emphysema History of smoking not in exacerbation (2) Hypertension: per Dr. Rosenthal's notes (previous hospitalist): Noted to have persistently high blood pressure following surgery Likely secondary to volume overload with known history of hypertension past IV fluids have been discontinued and received Lasix with good diuresis Continue amlodipine 5mg po daily Patient and family member advised to establish with PCP and follow-up with PCP in 1 to 2 weeks for further management of hypertension (3) Right lower lobe pneumonia: per Dr. Rosenthal's notes (previous hospitalist): Chest x-ray did show right lower lobe infiltration with minimal right pleural effusion Likely due to aspiration pneumonia Improved Discharge home on Augmentin x7 days Probiotics advised to patient and family (4) Obesity CT of the abdomen pelvis did show severe steatosis Follow-up with Primary care physician Advised to decrease weight Thank you for this consultation. We will follow the patient with you during their hospital stay. [facility] via pager @ [phone]. Admission and Anticipated Discharge Date Admission Date: August 04, 2020 Subjective Follow-up for status post duodenal perforation surgery Seen resting in bed, comfortable, not in distress feels fine overall No abdominal pain, no nausea vomiting, tolerating diet well Denies chest pain, palpitations, dizziness, patient able to ambulate with no problems No shortness of breath or cough No other symptoms Review of Systems Review of Systems: All systems reviewed & are unremarkable except as noted in HPI & below Physical Exam Physical Exam: General- oriented x 3, not in distress, speaks in sentences with no effort or accessory muscle use Eyes- anicteric Neck- no JVD Lungs- clear breath sounds bilaterally, no rales/wheezes Heart- normal rate, regular rhythm; no murmurs Abdomen- normal bowel sounds, nondistended, soft, nontender Extremities- no pretibial edema, no calf tenderness Neuro- alert, oriented x 3; no gross focal neurologic deficits Skin- warm & dry Results & Data Results & Data ([facility]) Vital Signs (Past 12 Hours) Vital Signs Temp Pulse Pulse Resp BP BP Pulse Ox 08/11/20 08:26 36.7 C 92 H 77 16 137/88 135/82 92 08/11/20 07:12 36.7 C 77 16 137/88 92
--- NOTE | 2020-08-14 11:20 | Discharge Summary ---
Date of Service August 14, 2020 Admission HPI Per Admitting Provider This is a 64-year-old male who presented to the emergency room with a complaint of abdominal pain. The patient has been having upper abdominal pain for at least the last month. He has been taking Mobic daily for bilateral knee pain. He developed upper abdominal discomfort so began to take aspirin as well. He was taking 1 dose of Mobic and 1 dose of aspirin per day for at least the last 14 days. At approximately 3:00 this afternoon he had the acute onset of increased severity and more sharp discomfort. The pain is in the epigastric area. It was radiating around to his back at times. He had some mild nausea but no vomiting. His bowel habits have been normal. He has had no urinary habits. He denied fever. Upon arrival in the emergency room the emergency room physician describes him to have been pale and "pasty". He was given intravenous fluids and analgesics. A work-up for a cardiac etiology was negative. He then underwent a CT scan of the abdomen and pelvis that showed thickening of the duodenum. There was some dots of air in the wall of the duodenum and there was some free air around the gallbladder. There was also fluid around the liver. Admission Exam Per Admitting Provider Constitutional: + ill appearing and average body habitus Neck: trachea midline Respiratory: normal respiratory effort, lungs clear to auscultation Cardiovascular: Rate/Rhythm: regular rate and regular rhythm Gastrointestinal (Abdomen): Inspection/Auscultation: abdomen not distended Percussion/Palpation: + abdomen tender (Significant tenderness in the upper abdomen especially in the epigastric area); + abdomen not soft Decreased bowel sounds Skin: no rashes, warm and dry Lymphatic: no cervical lymphadenopathy Principal Diagnosis Perforated duodenal ulcer Discharge Exam Constitutional no acute distress Respiratory normal respiratory effort, lungs clear to auscultation Cardiovascular Rate/Rhythm: regular rate and regular rhythm Gastrointestinal (Abdomen) Inspection/Auscultation: normal bowel sounds; abdomen not distended Percussion/Palpation: + abdomen tender (Mild incisional only) and abdomen soft Skin no rashes, warm and dry Discharge Data Allergies Allergy/AdvReac Type Severity Reaction Status Date / Time No Known Allergies Allergy Unverified 08/04/20 18:59 Consultations 08/04/20 19:18 ED Decision to Admit Stat 08/07/20 16:56 Consult Hospitalist Routine Procedures Performed Operation Date: 08/04/20 19:00 Actual Procedures p Exploratory Laparotomy, Repair of Perforated Duodenal Ulcer - Terry Dey MD Ordered Studies 08/04/20 17:08 CT abd pelvis IV con only Stat CT angio chest dissec wo/w con Stat 08/09/20 09:00 [place] GI series Routine Hospital Course (1) Hypertension: The patient was evaluated by hospitalist service from internal medicine. They placed him on amlodipine 5 mg which controlled his blood pressure while he was in the hospital and he will be continued on that postoperatively. Prescription was sent. (2) Right lower lobe pneumonia: This may have been aspiration related. He was started on antibiotics. Recommendation for Augmentin postop was made and prescription for that was sent. He was not short of breath at the time of discharge. His pulse oximetry's were adequate. (3) Duodenal ulcer perforation: The patient was taken to the operating room and underwent an uncomplicated repair of a perforated duodenal ulcer. He had an NG tube placed for drainage of the stomach. On postoperative day 4 he underwent a Gastrografin upper GI. There was no evidence of extravasation. At that point he was started on clear liquids. He tolerated those and was able to be advanced to a soft diet prior to discharge. He was tolerating that. He was placed on IV Protonix. P.o. Protonix twice a day will be continued. A prescription was sent. Total Time Total Time Spent Total Time Spent (In Minutes): 15 Discharge Plan Discharge Items Patient Disposition: Home - Self-Care Reason For Visit: PERFORATED DUODENAL ULCER Discharge Diagnosis: Perforated duodenal ulcer, hypertension, pneumonia Activity: As commented below Non-emergency contact: Surgeon Call non-emergency contact if: your temperature is above 101.5 and your wound has increased redness Follow-up/Referrals: PCP,NO [Primary Care Provider] - Diet: Low Fiber Addtl Attending Provider Instructions: Post-Surgical ~Discharge Instructions Activity Recommendations: - lifting limitation: (10 pounds for 6 weeks), - exercise/sex/sports limit: (nonstrenuous for 6 weeks), - driving or machine use limit: (none for 2 week), - Shower/bathe limit: (may shower beginning tomorrow) Diet: - Low fiber SPECIAL CARE INSTRUCTIONS: - May shower in 24 hours. Let water run over area and pat dry. - Call the surgeon's office with any questions or concerns - - (ex. temperature higher than 101 degrees F, excessive bleeding or pain). MEDICATIONS: - Resume previous medications unless instructed otherwise by your surgeon. - Tylenol 650 mg every 4 hours as needed not to exceed 3000 mg in any 24 hour period - Percocet 1 every 4 hours, as needed for pain - Augmentin 875 mg two times per day - Amlodipine 5 mg daily FOLLOW UP VISIT: - If not already scheduled, please call the office to schedule a two week follow-up appointment. Office number Pending Studies at Discharge: No Stand-Alone Forms: [facility] fotopedia, Opioid Pain Management, Smoking Cessation Medications and DC Order Prescriptions: New amlodipine [Norvasc] 5 mg Tablet 5 mg PO QAM Qty: 30 RF: 3 oxycodone-acetaminophen [Percocet] 5-325 mg Tablet 1 tab PO Q4H PRN (Reason: pain) Qty: 5 RF: 0 amoxicillin-pot clavulanate [Augmentin] 875-125 mg tablet 1 tab PO BID Qty: 14 RF: 0 pantoprazole 20 mg tablet,delayed release (DR/EC) 20 mg PO BID 30 Days Qty: 60 RF: 2 Discontinued meloxicam 15 mg Tablet 15 mg PO DAILY RF: 0 Discharge Orders: Discharge Order (Routine); Ordered 08/11/20 Ordered By: Terry Marks/Other Patient Handouts: DVT Post Op Prevention, Understanding Perforated Ulcers Admission Data Admit Date/Time: 08/04/20 22:46 Attending Provider: Terry Dey Admit Provider: Terry Dey Primary Care Provider: PCP,NO Other Providers: Terry Dey ; Trey Perez ; Kael Randall Other Interventions: Discharge Summary Assessment (RN) Last Done: 08/11/20 08:26
--- NOTE | 2020-08-19 14:54 | Coding Query ---
CODING QUERY To promote full compliance with coding requirements relating to patient care, provider participation is requested in all cases of equipment coordinator uncertainty. Please assist us with the question(s) below: Coding Question(s): There is documentation on the Discharge Summary of Right Lower Lobe Pneumonia with documentation that it may be aspiration related and attending physician Progress Note on 08/11 documents Right Lower Lobe Pneumonia likely due to aspiration pneumonia. Please clarify below, regarding the Pneumonia. ( ) Pneumonia is Not likely a Postoperative Complication ( ) Pneumonia is likely a Postoperative Complication ( x ) Pneumonia is Postprocedural Aspiration Pneumonia - chemical pneumonitis due to anesthesia ( ) Pneumonia is Other: Please Specify Physician's Response(s): Thank you Anastasia Nelson Principal Diagnosis: "that condition established after study, to be chiefly responsible for occasioning the admission of the patient to the hospital for care." Co-Existing Principal Diagnosis: "when two or more diagnoses equally meet the criteria for principal diagnosis as determined by the circumstances of admission, diagnostic work up, and/or therapy provided, and the Alphabetic Index, Tabular List, or another coding guideline does not provide sequencing direction, any one of the diagnoses may be sequenced first." "When the physician has documented what appears to be a current diagnosis in the body of the record, but has not included the diagnosis in the final diagnostic statement, the physician should be asked whether the diagnosis should be added." (Source [facility] 2 QTR90. p3-4) HAYLEY
== END 2020-08-11 10:17 | disposition home or self-care (01) | DRG 330 ==
LOC: ED 16:55 → OR 19:30 → 3N 22:46